=== PATIENT | male | born 1995 | race Caucasian/White ===

== ENCOUNTER 2017-12-23 15:36 | Emergency (ER) | payer OTHER, SELFPAY ==
[2017-12-23 15:56] VITALS: PULSE 64; RESP 14; TEMP 37.3; O2SAT 98; BMI 21.7
[2017-12-23 16:06] VITALS: BP 114/59
--- NOTE | 2017-12-23 16:07 | DI.RAD.S_ITS ---
PROCEDURE: XR CHEST 2V INDICATIONS: inhaled glass from vaping pen. TECHNIQUE: 2 views of the chest were acquired. COMPARISON: None. FINDINGS: Surgical changes and devices: None. Lungs and pleura: No pleural effusions or pneumothorax. Lungs are clear. Mediastinum: Mediastinal contours are normal. Heart size is normal. Bones and chest wall: No suspicious bony abnormalities. Soft tissues appear unremarkable. IMPRESSION: Normal for age, source of current symptoms is not seen. Please note that CT scanning can provide a more accurate detection of foreign body material and may be warranted in this clinical circumstance. Dictated by: Paulo Pereyra M.D. on 12/23/2017 at 16:31 Approved by: Paulo Pereyra M.D. on 12/23/2017 at 16:31
--- NOTE | 2017-12-23 23:27 | ED.SOB ---
HPI - SOB/Dyspnea <[facility] - Last Filed: 12/23/17 23:30> General Chief Complaint: Shortness of Breath/Dyspnea Stated Complaint: INHALED GLASS Time Seen by Provider: 12/23/17 19:32 Source: patient Mode of arrival: ambulatory Limitations: no limitations History of Present Illness Patient states he inhaled a small piece of glass from a vape. He denies any abnormal shortness of breath, but states he feels something in his lung. He states that this may be due to smoking, but he is not sure. He denies any fevers chest pain or shortness of breath. He denies any abdominal pain. He denies any long history. He denies any major medical history. He denies any wheezing or cough. He states that the piece of glass was about 2 mm x 4 mm in a cylindrical smooth shape. Review of Systems <[facility] - Last Filed: 12/23/17 23:30> Review of Systems GENERAL: Denies chills, fatigue, malaise, fever, sweats. HEENT: Denies sinus pain, ear pain, sore throat, difficulty swallowing, dizziness. RESPIRATORY: See HPI CARDIOVASCULAR: Denies chest pain, palpitations, orthopnea, edema, GASTROINTESTINAL: Denies nausea, vomiting, abdominal pain, diarrhea, constipation, melena. : Denies dysuria, frequency, incontinence, hematuria, urinary retention. MUSCULOSKELETAL: denies weakness, joint pain, or bony pain SKIN: Denies rash, skin lesions, or other NEUROLOGIC: Denies weakness, headache, numbness, change in speech, confusion, seizures, incoordination. PSYCHIATRIC: No concerning psychosocial issues. 12 point review of systems is negative except for those stated above Exam <[facility] Last Filed: 12/23/17 23:30> Narrative Exam Narrative: GENERAL: This is a well-nourished, well-developed patient, sitting on stretcher in no apparent distress HEAD: Atraumatic. Normocephalic. No temporal or scalp tenderness. EYES: Pupils equal round and reactive. Extraocular motions intact. No scleral icterus. No injection or drainage. ENT: Nose without bleeding, purulent drainage or septal hematoma. Throat without erythema, tonsillar hypertrophy or exudate. Uvula midline. Airway patent. NECK: Trachea midline. No JVD or lymphadenopathy. Supple, nontender, no meningeal signs. CARDIOVASCULAR: Regular rate and rhythm without murmurs, gallops, or rubs. RESPIRATORY: Clear to auscultation. Breath sounds equal bilaterally. No wheezes, rales, or rhonchi. No cough on exam. No increased respiratory effort. No accessory muscle use. GASTROINTESTINAL: Abdomen soft, non-tender, nondistended. No hepato-splenomegaly, or palpable masses. No guarding. EXTREMITIES: No clubbing, cyanosis, or edema. No joint tenderness, effusion, or edema noted. BACK: Nontender without deformity or crepitance. No flank tenderness. NEURO: AOx3. SKIN: No rash or erythema. Initial Vital Signs Initial Vital Signs: Vital Signs Temperature 99.1 F 12/23/17 15:56 Pulse Rate 64 12/23/17 15:56 Respiratory Rate 14 12/23/17 15:56 Pulse Oximetry 98 12/23/17 15:56 <DO Nimo Tran Last Filed: 12/24/17 05:41> Initial Vital Signs Initial Vital Signs: Vital Signs Temperature 99.1 F 12/23/17 15:56 Pulse Rate 64 12/23/17 15:56 Respiratory Rate 14 12/23/17 15:56 Pulse Oximetry 98 12/23/17 15:56 Course <PARKER Lao - Last Filed: 12/23/17 23:30> Orders Ordered: ED Orders 12/23/17 16:07 Chest [XR chest 2V] Stat Vital Signs - 8 hr 12/23/17 15:56 12/23/17 16:06 Temperature 99.1 F Pulse Rate 64 Respiratory Rate 14 Blood Pressure [Left Arm] 114/59 L Pulse Oximetry 98 <DO Nimo Tran Last Filed: 12/24/17 05:41> Orders Ordered: ED Orders 12/23/17 16:07 Chest [XR chest 2V] Stat Vital Signs - 8 hr 12/23/17 15:56 12/23/17 16:06 Temperature 99.1 F Pulse Rate 64 Respiratory Rate 14 Blood Pressure [Left Arm] 114/59 L Pulse Oximetry 98 MDM - SOB/Dyspnea <PARKER Lao Last Filed: 12/23/17 23:30> Imaging Data Chest x-ray: Radiologist's impression: XRay Report Signed Patient: Natanael Neil MR#: [id number] : 1995 Acct:[id number] Age/Sex: 22 / M Date of Service: 12/23/17 Loc: ED Accession Number: [id number] Procedure: XR chest 2V Ordering Provider: Maya Garcia D.O. PROCEDURE: XR CHEST 2V INDICATIONS: inhaled glass from vaping pen. TECHNIQUE: 2 views of the chest were acquired. COMPARISON: None. FINDINGS: Surgical changes and devices: None. Lungs and pleura: No pleural effusions or pneumothorax. Lungs are clear. Mediastinum: Mediastinal contours are normal. Heart size is normal. Bones and chest wall: No suspicious bony abnormalities. Soft tissues appear unremarkable. IMPRESSION: Normal for age, source of current symptoms is not seen. Please note that CT scanning can provide a more accurate detection of foreign body material and may be warranted in this clinical circumstance. Dictated by: Paulo Pereyra M.D. on 12/23/2017 at 16:31 Approved by: Paulo Pereyra M.D. on 12/23/2017 at 16:31 [facility] Narrative Medical decision making narrative: Patient presents after believing he has inhaled a piece of glass. His chest x-ray is clear. He has no increased respiratory effort. He has no cough. I discussed at length monitoring for any fever, chest pain, shortness of breath or hemoptysis. Patient stated understanding of above. He does plan on following up with the primary care physician. I gave him a list of providers accepting new patients. He had no questions or concerns upon discharge. Discharge Plan Departure Patient Disposition: Home Clinical Impression: Breath shortness Discharge Date/Time: 12/23/17 20:32 Interventions: ED Discharge Assessment Last Done: 12/23/17 20:31 Instructions: DI for Shortness of Breath Activity Restrictions/Additional Instructions: Your x-ray showed no obvious foreign body in your lungs. Come back to the emergency department for any acute concerns including severe shortness of breath, coughing up blood, fever, chest pain. We gave you a list of primary care providers. Please call 1 of them to help find a primary care provider. <Gael Ortiz DO - Last Filed: 12/24/17 05:41> Cosign ED Attending Angelina Attestation: I was immediately available in the department for consultation. Documentation has been reviewed. I agree with assessment and plan.
--- NOTE | 2017-12-23 23:31 | ED_ITS ---
HPI - SOB/Dyspnea <[facility] - Last Filed: 12/23/17 23:30> General Chief Complaint: Shortness of Breath/Dyspnea Stated Complaint: INHALED GLASS Time Seen by Provider: 12/23/17 19:32 Source: patient Mode of arrival: ambulatory Limitations: no limitations History of Present Illness Patient states he inhaled a small piece of glass from a vape. He denies any abnormal shortness of breath, but states he feels something in his lung. He states that this may be due to smoking, but he is not sure. He denies any fevers chest pain or shortness of breath. He denies any abdominal pain. He denies any long history. He denies any major medical history. He denies any wheezing or cough. He states that the piece of glass was about 2 mm x 4 mm in a cylindrical smooth shape. Review of Systems <[facility] - Last Filed: 12/23/17 23:30> Review of Systems GENERAL: Denies chills, fatigue, malaise, fever, sweats. HEENT: Denies sinus pain, ear pain, sore throat, difficulty swallowing, dizziness. RESPIRATORY: See HPI CARDIOVASCULAR: Denies chest pain, palpitations, orthopnea, edema, GASTROINTESTINAL: Denies nausea, vomiting, abdominal pain, diarrhea, constipation, melena. : Denies dysuria, frequency, incontinence, hematuria, urinary retention. MUSCULOSKELETAL: denies weakness, joint pain, or bony pain SKIN: Denies rash, skin lesions, or other NEUROLOGIC: Denies weakness, headache, numbness, change in speech, confusion, seizures, incoordination. PSYCHIATRIC: No concerning psychosocial issues. 12 point review of systems is negative except for those stated above Exam <[facility] Last Filed: 12/23/17 23:30> Narrative Exam Narrative: GENERAL: This is a well-nourished, well-developed patient, sitting on stretcher in no apparent distress HEAD: Atraumatic. Normocephalic. No temporal or scalp tenderness. EYES: Pupils equal round and reactive. Extraocular motions intact. No scleral icterus. No injection or drainage. ENT: Nose without bleeding, purulent drainage or septal hematoma. Throat without erythema, tonsillar hypertrophy or exudate. Uvula midline. Airway patent. NECK: Trachea midline. No JVD or lymphadenopathy. Supple, nontender, no meningeal signs. CARDIOVASCULAR: Regular rate and rhythm without murmurs, gallops, or rubs. RESPIRATORY: Clear to auscultation. Breath sounds equal bilaterally. No wheezes , rales, or rhonchi. No cough on exam. No increased respiratory effort. No accessory muscle use. GASTROINTESTINAL: Abdomen soft, non-tender, nondistended. No hepato-splenomegaly , or palpable masses. No guarding. EXTREMITIES: No clubbing, cyanosis, or edema. No joint tenderness, effusion, or edema noted. BACK: Nontender without deformity or crepitance. No flank tenderness. NEURO: AOx3. SKIN: No rash or erythema. Initial Vital Signs Initial Vital Signs: Vital Signs Temperature 99.1 F 12/23/17 15:56 Pulse Rate 64 12/23/17 15:56 Respiratory Rate 14 12/23/17 15:56 Pulse Oximetry 98 12/23/17 15:56 <DO Nimo Tran Last Filed: 12/24/17 05:41> Initial Vital Signs Initial Vital Signs: Vital Signs Temperature 99.1 F 12/23/17 15:56 Pulse Rate 64 12/23/17 15:56 Respiratory Rate 14 12/23/17 15:56 Pulse Oximetry 98 12/23/17 15:56 Course <PARKER Lao - Last Filed: 12/23/17 23:30> Orders Ordered: ED Orders 12/23/17 16:07 Chest [XR chest 2V] Stat Vital Signs - 8 hr 12/23/17 15:56 12/23/17 16:06 Temperature 99.1 F Pulse Rate 64 Respiratory Rate 14 Blood Pressure [Left Arm] 114/59 L Pulse Oximetry 98 <DO Nimo Tran Last Filed: 12/24/17 05:41> Orders Ordered: ED Orders 12/23/17 16:07 Chest [XR chest 2V] Stat Vital Signs - 8 hr 12/23/17 15:56 12/23/17 16:06 Temperature 99.1 F Pulse Rate 64 Respiratory Rate 14 Blood Pressure [Left Arm] 114/59 L Pulse Oximetry 98 MDM - SOB/Dyspnea <PARKER Lao Last Filed: 12/23/17 23:30> Imaging Data Chest x-ray: Radiologist's impression: XRay Report Signed Patient: Natanael Neil MR#: [id number] : 1995 Acct:[id number] Age/Sex: 22 / M Date of Service: 12/23/17 Loc: ED Accession Number: [id number] Procedure: XR chest 2V Ordering Provider: Maya Garcia D.O. PROCEDURE: XR CHEST 2V INDICATIONS: inhaled glass from vaping pen. TECHNIQUE: 2 views of the chest were acquired. COMPARISON: None. FINDINGS: Surgical changes and devices: None. Lungs and pleura: No pleural effusions or pneumothorax. Lungs are clear. Mediastinum: Mediastinal contours are normal. Heart size is normal. Bones and chest wall: No suspicious bony abnormalities. Soft tissues appear unremarkable. IMPRESSION: Normal for age, source of current symptoms is not seen. Please note that CT scanning can provide a more accurate detection of foreign body material and may be warranted in this clinical circumstance. Dictated by: Paulo Pereyra M.D. on 12/23/2017 at 16:31 Approved by: Paulo Pereyra M.D. on 12/23/2017 at 16:31 [facility] Narrative Medical decision making narrative: Patient presents after believing he has inhaled a piece of glass. His chest x-ray is clear. He has no increased respiratory effort. He has no cough. I discussed at length monitoring for any fever, chest pain, shortness of breath or hemoptysis. Patient stated understanding of above. He does plan on following up with the primary care physician. I gave him a list of providers accepting new patients. He had no questions or concerns upon discharge. Discharge Plan Departure Patient Disposition: Home Clinical Impression: Breath shortness Discharge Date/Time: 12/23/17 20:32 Interventions: ED Discharge Assessment Last Done: 12/23/17 20:31 Instructions: DI for Shortness of Breath Activity Restrictions/Additional Instructions: Your x-ray showed no obvious foreign body in your lungs. Come back to the emergency department for any acute concerns including severe shortness of breath , coughing up blood, fever, chest pain. We gave you a list of primary care providers. Please call 1 of them to help find a primary care provider. <Gael Ortiz DO - Last Filed: 12/24/17 05:41> Cosign ED Attending Angelina Attestation: I was immediately available in the department for consultation. Documentation has been reviewed. I agree with assessment and plan.
== END 2017-12-23 20:32 | disposition home or self-care (01) ==
PROVIDERS: Emergency Provider Nurse Practitioner Family; Family Provider Nurse Practitioner
DX: R06.02 Shortness of breath (principal)
CPT/HCPCS: 71046; 99282; 99283

== ENCOUNTER 2018-01-22 16:42 | Emergency (ER) | payer OTHER, SELFPAY ==
[2018-01-22 16:44] VITALS: BP 143/90; PULSE 70; RESP 18; TEMP 36.8; O2SAT 99; BMI 21.8
--- NOTE | 2018-01-22 17:07 | ED.ABDPAIN ---
HPI - Abdominal Pain <EDWINA Fong - Last Filed: 01/22/18 19:25> General Chief Complaint: Abdominal Pain Stated Complaint: states abdominal pain Time Seen by Provider: 01/22/18 16:51 Source: patient Mode of arrival: ambulatory Limitations: no limitations History of Present Illness HPI narrative: intermittent abd pain, his entire gut hurts when it comes on, feels sharp, started in Aug afte he quit his chew, denies swallowing it, spits it out, no pain currently, and he would also like to be tested for all major std's MD complaint: abdominal pain Onset (ago): month(s) Pain Consistency: intermittent Location: diffuse Severity: moderate Radiation: none Migration to: no migration Relieving factors: nothing Exacerbating factors: nothing Context: other (none) Associated symptoms: denies other symptoms Related Data Allergies Allergy/AdvReac Type Severity Reaction Status Date / Time No Known Drug Allergies Allergy Verified 01/22/18 16:44 Review of Systems <EDWINA Fong - Last Filed: 01/22/18 19:25> Constitutional Reports as per HPI and Reports system reviewed and no additional complaints, except as docu Cardiovascular Denies chest pain and Denies dyspnea Respiratory Denies dyspnea Gastrointestinal Gastrointestinal: Reports as per HPI, Reports abdominal pain, Denies melena, Denies hematochezia, Denies change in bowel habits, Denies constipation, Denies heartburn, Denies diarrhea, Denies nausea and Denies vomiting Genitourinary Denies genital lesions, Denies genital pain, Denies dysuria, Denies flank pain, Denies penile discharge, Denies scrotal swelling, Denies testicular mass and Denies testicular pain Musculoskeletal Denies back pain Exam <EDWINA Fong - Last Filed: 01/22/18 19:25> Initial Vital Signs Initial Vital Signs: Vital Signs Temperature 98.2 F 01/22/18 16:44 Pulse Rate 70 01/22/18 16:44 Respiratory Rate 18 01/22/18 16:44 Blood Pressure 143/90 H 01/22/18 16:44 Pulse Oximetry 99 01/22/18 16:44 Const General: cooperative, healthy appearing, comfortable and well developed Nutritional Appearance: average body habitus Orientation: alert, awake and oriented x3 Resp Effort & Inspection: normal respiratory effort and able to speak in complete sentences Auscultation: clear to auscultation bilaterally Cardio Rate: regular rate Rhythm: regular rhythm Heart Sounds: S1 normal and S2 normal GI Inspection: normal to inspection, non-distended and no obesity Palpation: soft, no hepatosplenomegaly, No hernia and No mass Auscultation: normal bowel sounds General: No CVA tenderness Back/Spine/Pelvis Cervical Spine: cervical ROM normal Thoracic/Lumbar Spine: thoraco-lumbar ROM limited Skin General: no rashes or lesions noted, elasticity normal, turgor normal and warm Neuro General: alert, awake and oriented x3 Cranial Nerves: CN's II-XI intact bilaterally Cognition: normal cognition Speech: speech normal Motor: muscle tone normal throughout Sensory Exam: no sensory deficits noted Psych Appearance: grossly normal and well kempt Mental Status: mental status grossly normal Speech and Movement: speech and movement normal Mood: congruent mood Affect: normal affect Attitude: cooperative Thought Process: normal Thought Content: normal Judgment: judgment good <Maya Garcia DO - Last Filed: 01/23/18 07:21> Initial Vital Signs Initial Vital Signs: Vital Signs Temperature 98.2 F 01/22/18 16:44 Pulse Rate 70 01/22/18 16:44 Respiratory Rate 18 01/22/18 16:44 Blood Pressure 143/90 H 01/22/18 16:44 Pulse Oximetry 99 01/22/18 16:44 Course <EDWIAN Fong - Last Filed: 01/22/18 19:25> Course Narrative: tx options discussed and agreed to send urine for GC screen, but other std testing would not be done here in ER today, pt agreed Orders Ordered: ED Orders 01/22/18 17:25 Urine Chlamydia Gonorrhea PCR Stat Urine Microscopic Stat 01/22/18 17:27 GC Screen Stat 01/22/18 17:30 Amylase Stat Complete Blood Count AUTO DIFF Stat Comprehensive Metabolic Panel Stat Lipase Stat Vital Signs - 8 hr 01/22/18 16:44 Temperature 98.2 F Pulse Rate 70 Respiratory Rate 18 Blood Pressure 143/90 H Pulse Oximetry 99 <Maya Garcia DO - Last Filed: 01/23/18 07:21> Orders Ordered: ED Orders 01/22/18 17:25 Urine Chlamydia Gonorrhea PCR Stat Urine Microscopic Stat 01/22/18 17:27 GC Screen Stat 01/22/18 17:30 Amylase Stat Complete Blood Count AUTO DIFF Stat Comprehensive Metabolic Panel Stat Lipase Stat Vital Signs - 8 hr 01/22/18 16:44 Temperature 98.2 F Pulse Rate 70 Respiratory Rate 18 Blood Pressure 143/90 H Pulse Oximetry 99 MDM - Abdominal Pain <EDWINA Fong - Last Filed: 01/22/18 19:25> Differential Diagnosis Differential diagnosis: Likely abdominal pain, calculus of kidney, pancreatitis, small bowel obstruction and other (std, ulcer, gallstones) Lab Data Result diagrams: 01/22/18 17:30 01/22/18 17:30 Lab Results 01/22/18 01/22/18 01/22/18 Range/Units 17:25 17:25 17:30 WBC 9.2 (4.5-11.0) X10^3/uL RBC 5.11 (4.5-5.9) X10^6/uL Hgb 15.1 (13.5-17.5) g/dL Hct 43.2 (41-53) % MCV 84.5 (80-100) fL MCH 29.5 (26-34) PG MCHC 34.9 (30-36) % RDW 13.3 (11.6-14.8) % Plt Count 244 (150-400) X10^3/uL Neut % (Auto) 58.2 (50-75) % Lymph % (Auto) 31.0 (25-40) % Knott % (Auto) 8.3 (3-14) % Eos % (Auto) 1.6 L (2-4) % Baso % (Auto) 0.9 (0-2) % Neut # (Auto) 5300 (5684-7214) /uL Sodium (137-145) mmol/L Potassium (3.4-5.1) mmol/L Chloride (98-107) mmol/L Carbon Dioxide (22-32) mmol/L BUN (9-20) mg/dL Creatinine (0.66-1.25) mg/dL Estimated GFR (>60) mL/min BUN/Creatinine Ratio (6-22) Glucose (70-100) mg/dL Calcium (8.4-10.2) mg/dL Total Bilirubin (0.2-1.3) mg/dL AST (17-59) IU/L ALT (21-72) IU/L Alkaline Phosphatase (38-126) U/L Total Protein (6.3-8.2) g/dL Albumin (3.5-5.0) g/dL Globulin (1.7-4.1) g/dL Albumin/Globulin Ratio (1.0-2.8) Amylase (30-110) U/L Lipase (23-300) U/L Urine RBC None seen (0-5/HPF) Urine WBC None seen (0-5/HPF) Urine Bacteria None seen (None) Ur Culture Indicated? Cult not indicated Micro UA Comment Microscopic normal Ur Chlamydia DNA (PCR) Not detected N gonorrhoeae DNA (PCR) Not detected 01/22/18 Range/Units 17:30 WBC (4.5-11.0) X10^3/uL RBC (4.5-5.9) X10^6/uL Hgb (13.5-17.5) g/dL Hct (41-53) % MCV (80-100) fL MCH (26-34) PG MCHC (30-36) % RDW (11.6-14.8) % Plt Count (150-400) X10^3/uL Neut % (Auto) (50-75) % Lymph % (Auto) (25-40) % Knott % (Auto) (3-14) % Eos % (Auto) (2-4) % Baso % (Auto) (0-2) % Neut # (Auto) (1184-2810) /uL Sodium 144 (137-145) mmol/L Potassium 3.9 (3.4-5.1) mmol/L Chloride 99 (98-107) mmol/L Carbon Dioxide 33 H (22-32) mmol/L BUN 16 (9-20) mg/dL Creatinine 0.90 (0.66-1.25) mg/dL Estimated GFR > 60.0 (>60) mL/min BUN/Creatinine Ratio 17.8 (6-22) Glucose 81 (70-100) mg/dL Calcium 9.8 (8.4-10.2) mg/dL Total Bilirubin 0.6 (0.2-1.3) mg/dL AST 38 (17-59) IU/L ALT 26 (21-72) IU/L Alkaline Phosphatase 60 (38-126) U/L Total Protein 8.1 (6.3-8.2) g/dL Albumin 4.9 (3.5-5.0) g/dL Globulin 3.2 (1.7-4.1) g/dL Albumin/Globulin Ratio 1.5 (1.0-2.8) Amylase 87 (30-110) U/L Lipase 158 (23-300) U/L Urine RBC (0-5/HPF) Urine WBC (0-5/HPF) Urine Bacteria (None) Ur Culture Indicated? Micro UA Comment Ur Chlamydia DNA (PCR) N gonorrhoeae DNA (PCR) <Maya Garcia, DO - Last Filed: 01/23/18 07:21> Lab Data Lab Results 01/22/18 01/22/18 01/22/18 Range/Units 17:25 17:25 17:30 WBC 9.2 (4.5-11.0) X10^3/uL RBC 5.11 (4.5-5.9) X10^6/uL Hgb 15.1 (13.5-17.5) g/dL Hct 43.2 (41-53) % MCV 84.5 (80-100) fL MCH 29.5 (26-34) PG MCHC 34.9 (30-36) % RDW 13.3 (11.6-14.8) % Plt Count 244 (150-400) X10^3/uL Neut % (Auto) 58.2 (50-75) % Lymph % (Auto) 31.0 (25-40) % Knott % (Auto) 8.3 (3-14) % Eos % (Auto) 1.6 L (2-4) % Baso % (Auto) 0.9 (0-2) % Neut # (Auto) 5300 (7953-6666) /uL Sodium (137-145) mmol/L Potassium (3.4-5.1) mmol/L Chloride (98-107) mmol/L Carbon Dioxide (22-32) mmol/L BUN (9-20) mg/dL Creatinine (0.66-1.25) mg/dL Estimated GFR (>60) mL/min BUN/Creatinine Ratio (6-22) Glucose (70-100) mg/dL Calcium (8.4-10.2) mg/dL Total Bilirubin (0.2-1.3) mg/dL AST (17-59) IU/L ALT (21-72) IU/L Alkaline Phosphatase (38-126) U/L Total Protein (6.3-8.2) g/dL Albumin (3.5-5.0) g/dL Globulin (1.7-4.1) g/dL Albumin/Globulin Ratio (1.0-2.8) Amylase (30-110) U/L Lipase (23-300) U/L Urine RBC None seen (0-5/HPF) Urine WBC None seen (0-5/HPF) Urine Bacteria None seen (None) Ur Culture Indicated? Cult not indicated Micro UA Comment Microscopic normal Ur Chlamydia DNA (PCR) Not detected N gonorrhoeae DNA (PCR) Not detected 01/22/18 Range/Units 17:30 WBC (4.5-11.0) X10^3/uL RBC (4.5-5.9) X10^6/uL Hgb (13.5-17.5) g/dL Hct (41-53) % MCV (80-100) fL MCH (26-34) PG MCHC (30-36) % RDW (11.6-14.8) % Plt Count (150-400) X10^3/uL Neut % (Auto) (50-75) % Lymph % (Auto) (25-40) % Knott % (Auto) (3-14) % Eos % (Auto) (2-4) % Baso % (Auto) (0-2) % Neut # (Auto) (3224-9426) /uL Sodium 144 (137-145) mmol/L Potassium 3.9 (3.4-5.1) mmol/L Chloride 99 (98-107) mmol/L Carbon Dioxide 33 H (22-32) mmol/L BUN 16 (9-20) mg/dL Creatinine 0.90 (0.66-1.25) mg/dL Estimated GFR > 60.0 (>60) mL/min BUN/Creatinine Ratio 17.8 (6-22) Glucose 81 (70-100) mg/dL Calcium 9.8 (8.4-10.2) mg/dL Total Bilirubin 0.6 (0.2-1.3) mg/dL AST 38 (17-59) IU/L ALT 26 (21-72) IU/L Alkaline Phosphatase 60 (38-126) U/L Total Protein 8.1 (6.3-8.2) g/dL Albumin 4.9 (3.5-5.0) g/dL Globulin 3.2 (1.7-4.1) g/dL Albumin/Globulin Ratio 1.5 (1.0-2.8) Amylase 87 (30-110) U/L Lipase 158 (23-300) U/L Urine RBC (0-5/HPF) Urine WBC (0-5/HPF) Urine Bacteria (None) Ur Culture Indicated? Micro UA Comment Ur Chlamydia DNA (PCR) N gonorrhoeae DNA (PCR) Discharge Plan Departure Patient Disposition: Home Clinical Impression: Abdominal pain Discharge Date/Time: 01/22/18 19:20 Interventions: ED Discharge Assessment Last Done: 01/22/18 20:04 Instructions: Acute Abdominal Pain Referrals: Carl Valencia MD [Physician] - SUMIT Meeks [Medical Student] - Vinayak Bravo MD [Physician] - Antonia Cloud [Medical Student] - Prasad Martinez MD [Physician] - Delisa Castro MD [Physician] - <Maya Garcia DO - Last Filed: 01/23/18 07:21> Cosign ED Attending Cosbkature Attestation: I was immediately available in the department for consultation. Documentation has been reviewed. I agree with assessment and plan.
--- NOTE | 2018-01-22 17:19 | ED_ITS ---
HPI - Abdominal Pain <EDWINA Fong - Last Filed: 01/22/18 19:25> General Chief Complaint: Abdominal Pain Stated Complaint: states abdominal pain Time Seen by Provider: 01/22/18 16:51 Source: patient Mode of arrival: ambulatory Limitations: no limitations History of Present Illness HPI narrative: intermittent abd pain, his entire gut hurts when it comes on, feels sharp, started in Aug afte he quit his chew, denies swallowing it, spits it out, no pain currently, and he would also like to be tested for all major std 's MD complaint: abdominal pain Onset (ago): month(s) Pain Consistency: intermittent Location: diffuse Severity: moderate Radiation: none Migration to: no migration Relieving factors: nothing Exacerbating factors: nothing Context: other (none) Associated symptoms: denies other symptoms Related Data Allergies Allergy/AdvReac Type Severity Reaction Status Date / Time No Known Drug Allergies Allergy Verified 01/22/18 16:44 Review of Systems <EDWINA Fong - Last Filed: 01/22/18 19:25> Constitutional Reports as per HPI and Reports system reviewed and no additional complaints, except as docu Cardiovascular Denies chest pain and Denies dyspnea Respiratory Denies dyspnea Gastrointestinal Gastrointestinal: Reports as per HPI, Reports abdominal pain, Denies melena, Denies hematochezia, Denies change in bowel habits, Denies constipation, Denies heartburn, Denies diarrhea, Denies nausea and Denies vomiting Genitourinary Denies genital lesions, Denies genital pain, Denies dysuria, Denies flank pain, Denies penile discharge, Denies scrotal swelling, Denies testicular mass and Denies testicular pain Musculoskeletal Denies back pain Exam <EDWINA Fong - Last Filed: 01/22/18 19:25> Initial Vital Signs Initial Vital Signs: Vital Signs Temperature 98.2 F 01/22/18 16:44 Pulse Rate 70 01/22/18 16:44 Respiratory Rate 18 01/22/18 16:44 Blood Pressure 143/90 H 01/22/18 16:44 Pulse Oximetry 99 01/22/18 16:44 Const General: cooperative, healthy appearing, comfortable and well developed Nutritional Appearance: average body habitus Orientation: alert, awake and oriented x3 Resp Effort & Inspection: normal respiratory effort and able to speak in complete sentences Auscultation: clear to auscultation bilaterally Cardio Rate: regular rate Rhythm: regular rhythm Heart Sounds: S1 normal and S2 normal GI Inspection: normal to inspection, non-distended and no obesity Palpation: soft, no hepatosplenomegaly, No hernia and No mass Auscultation: normal bowel sounds General: No CVA tenderness Back/Spine/Pelvis Cervical Spine: cervical ROM normal Thoracic/Lumbar Spine: thoraco-lumbar ROM limited Skin General: no rashes or lesions noted, elasticity normal, turgor normal and warm Neuro General: alert, awake and oriented x3 Cranial Nerves: CN's II-XI intact bilaterally Cognition: normal cognition Speech: speech normal Motor: muscle tone normal throughout Sensory Exam: no sensory deficits noted Psych Appearance: grossly normal and well kempt Mental Status: mental status grossly normal Speech and Movement: speech and movement normal Mood: congruent mood Affect: normal affect Attitude: cooperative Thought Process: normal Thought Content: normal Judgment: judgment good <Maya Garcia DO - Last Filed: 01/23/18 07:21> Initial Vital Signs Initial Vital Signs: Vital Signs Temperature 98.2 F 01/22/18 16:44 Pulse Rate 70 01/22/18 16:44 Respiratory Rate 18 01/22/18 16:44 Blood Pressure 143/90 H 01/22/18 16:44 Pulse Oximetry 99 01/22/18 16:44 Course <EDWINA Fong - Last Filed: 01/22/18 19:25> Course Narrative: tx options discussed and agreed to send urine for GC screen, but other std testing would not be done here in ER today, pt agreed Orders Ordered: ED Orders 01/22/18 17:25 Urine Chlamydia Gonorrhea PCR Stat Urine Microscopic Stat 01/22/18 17:27 GC Screen Stat 01/22/18 17:30 Amylase Stat Complete Blood Count AUTO DIFF Stat Comprehensive Metabolic Panel Stat Lipase Stat Vital Signs - 8 hr 01/22/18 16:44 Temperature 98.2 F Pulse Rate 70 Respiratory Rate 18 Blood Pressure 143/90 H Pulse Oximetry 99 <Maya Garcia DO - Last Filed: 01/23/18 07:21> Orders Ordered: ED Orders 01/22/18 17:25 Urine Chlamydia Gonorrhea PCR Stat Urine Microscopic Stat 01/22/18 17:27 GC Screen Stat 01/22/18 17:30 Amylase Stat Complete Blood Count AUTO DIFF Stat Comprehensive Metabolic Panel Stat Lipase Stat Vital Signs - 8 hr 01/22/18 16:44 Temperature 98.2 F Pulse Rate 70 Respiratory Rate 18 Blood Pressure 143/90 H Pulse Oximetry 99 MDM - Abdominal Pain <EDWINA Fong - Last Filed: 01/22/18 19:25> Differential Diagnosis Differential diagnosis: Likely abdominal pain, calculus of kidney, pancreatitis , small bowel obstruction and other (std, ulcer, gallstones) Lab Data Result diagrams: 01/22/18 17:30 01/22/18 17:30 Lab Results 01/22/18 01/22/18 01/22/18 Range/Units 17:25 17:25 17:30 WBC 9.2 (4.5-11.0) X10^3/uL RBC 5.11 (4.5-5.9) X10^6/uL Hgb 15.1 (13.5-17.5) g/dL Hct 43.2 (41-53) % MCV 84.5 (80-100) fL MCH 29.5 (26-34) PG MCHC 34.9 (30-36) % RDW 13.3 (11.6-14.8) % Plt Count 244 (150-400) X10^3/uL Neut % (Auto) 58.2 (50-75) % Lymph % (Auto) 31.0 (25-40) % Mcleod % (Auto) 8.3 (3-14) % Eos % (Auto) 1.6 L (2-4) % Baso % (Auto) 0.9 (0-2) % Neut # (Auto) 5300 (2687-7286) /uL Sodium (137-145) mmol/L Potassium (3.4-5.1) mmol/L Chloride (98-107) mmol/L Carbon Dioxide (22-32) mmol/L BUN (9-20) mg/dL Creatinine (0.66-1.25) mg/dL Estimated GFR (>60) mL/min BUN/Creatinine Ratio (6-22) Glucose (70-100) mg/dL Calcium (8.4-10.2) mg/dL Total Bilirubin (0.2-1.3) mg/dL AST (17-59) IU/L ALT (21-72) IU/L Alkaline Phosphatase (38-126) U/L Total Protein (6.3-8.2) g/dL Albumin (3.5-5.0) g/dL Globulin (1.7-4.1) g/dL Albumin/Globulin Ratio (1.0-2.8) Amylase (30-110) U/L Lipase (23-300) U/L Urine RBC None seen (0-5/HPF) Urine WBC None seen (0-5/HPF) Urine Bacteria None seen (None) Ur Culture Indicated? Cult not indicated Micro UA Comment Microscopic normal Ur Chlamydia DNA (PCR) Not detected N gonorrhoeae DNA (PCR) Not detected 01/22/18 Range/Units 17:30 WBC (4.5-11.0) X10^3/uL RBC (4.5-5.9) X10^6/uL Hgb (13.5-17.5) g/dL Hct (41-53) % MCV (80-100) fL MCH (26-34) PG MCHC (30-36) % RDW (11.6-14.8) % Plt Count (150-400) X10^3/uL Neut % (Auto) (50-75) % Lymph % (Auto) (25-40) % Mcleod % (Auto) (3-14) % Eos % (Auto) (2-4) % Baso % (Auto) (0-2) % Neut # (Auto) (5490-0910) /uL Sodium 144 (137-145) mmol/L Potassium 3.9 (3.4-5.1) mmol/L Chloride 99 (98-107) mmol/L Carbon Dioxide 33 H (22-32) mmol/L BUN 16 (9-20) mg/dL Creatinine 0.90 (0.66-1.25) mg/dL Estimated GFR > 60.0 (>60) mL/min BUN/Creatinine Ratio 17.8 (6-22) Glucose 81 (70-100) mg/dL Calcium 9.8 (8.4-10.2) mg/dL Total Bilirubin 0.6 (0.2-1.3) mg/dL AST 38 (17-59) IU/L ALT 26 (21-72) IU/L Alkaline Phosphatase 60 (38-126) U/L Total Protein 8.1 (6.3-8.2) g/dL Albumin 4.9 (3.5-5.0) g/dL Globulin 3.2 (1.7-4.1) g/dL Albumin/Globulin Ratio 1.5 (1.0-2.8) Amylase 87 (30-110) U/L Lipase 158 (23-300) U/L Urine RBC (0-5/HPF) Urine WBC (0-5/HPF) Urine Bacteria (None) Ur Culture Indicated? Micro UA Comment Ur Chlamydia DNA (PCR) N gonorrhoeae DNA (PCR) <Maya Garcia, DO - Last Filed: 01/23/18 07:21> Lab Data Lab Results 01/22/18 01/22/18 01/22/18 Range/Units 17:25 17:25 17:30 WBC 9.2 (4.5-11.0) X10^3/uL RBC 5.11 (4.5-5.9) X10^6/uL Hgb 15.1 (13.5-17.5) g/dL Hct 43.2 (41-53) % MCV 84.5 (80-100) fL MCH 29.5 (26-34) PG MCHC 34.9 (30-36) % RDW 13.3 (11.6-14.8) % Plt Count 244 (150-400) X10^3/uL Neut % (Auto) 58.2 (50-75) % Lymph % (Auto) 31.0 (25-40) % Mcleod % (Auto) 8.3 (3-14) % Eos % (Auto) 1.6 L (2-4) % Baso % (Auto) 0.9 (0-2) % Neut # (Auto) 5300 (0269-1266) /uL Sodium (137-145) mmol/L Potassium (3.4-5.1) mmol/L Chloride (98-107) mmol/L Carbon Dioxide (22-32) mmol/L BUN (9-20) mg/dL Creatinine (0.66-1.25) mg/dL Estimated GFR (>60) mL/min BUN/Creatinine Ratio (6-22) Glucose (70-100) mg/dL Calcium (8.4-10.2) mg/dL Total Bilirubin (0.2-1.3) mg/dL AST (17-59) IU/L ALT (21-72) IU/L Alkaline Phosphatase (38-126) U/L Total Protein (6.3-8.2) g/dL Albumin (3.5-5.0) g/dL Globulin (1.7-4.1) g/dL Albumin/Globulin Ratio (1.0-2.8) Amylase (30-110) U/L Lipase (23-300) U/L Urine RBC None seen (0-5/HPF) Urine WBC None seen (0-5/HPF) Urine Bacteria None seen (None) Ur Culture Indicated? Cult not indicated Micro UA Comment Microscopic normal Ur Chlamydia DNA (PCR) Not detected N gonorrhoeae DNA (PCR) Not detected 01/22/18 Range/Units 17:30 WBC (4.5-11.0) X10^3/uL RBC (4.5-5.9) X10^6/uL Hgb (13.5-17.5) g/dL Hct (41-53) % MCV (80-100) fL MCH (26-34) PG MCHC (30-36) % RDW (11.6-14.8) % Plt Count (150-400) X10^3/uL Neut % (Auto) (50-75) % Lymph % (Auto) (25-40) % Mcleod % (Auto) (3-14) % Eos % (Auto) (2-4) % Baso % (Auto) (0-2) % Neut # (Auto) (4006-1904) /uL Sodium 144 (137-145) mmol/L Potassium 3.9 (3.4-5.1) mmol/L Chloride 99 (98-107) mmol/L Carbon Dioxide 33 H (22-32) mmol/L BUN 16 (9-20) mg/dL Creatinine 0.90 (0.66-1.25) mg/dL Estimated GFR > 60.0 (>60) mL/min BUN/Creatinine Ratio 17.8 (6-22) Glucose 81 (70-100) mg/dL Calcium 9.8 (8.4-10.2) mg/dL Total Bilirubin 0.6 (0.2-1.3) mg/dL AST 38 (17-59) IU/L ALT 26 (21-72) IU/L Alkaline Phosphatase 60 (38-126) U/L Total Protein 8.1 (6.3-8.2) g/dL Albumin 4.9 (3.5-5.0) g/dL Globulin 3.2 (1.7-4.1) g/dL Albumin/Globulin Ratio 1.5 (1.0-2.8) Amylase 87 (30-110) U/L Lipase 158 (23-300) U/L Urine RBC (0-5/HPF) Urine WBC (0-5/HPF) Urine Bacteria (None) Ur Culture Indicated? Micro UA Comment Ur Chlamydia DNA (PCR) N gonorrhoeae DNA (PCR) Discharge Plan Departure Patient Disposition: Home Clinical Impression: Abdominal pain Discharge Date/Time: 01/22/18 19:20 Interventions: ED Discharge Assessment Last Done: 01/22/18 20:04 Instructions: Acute Abdominal Pain Referrals: Carl Valencia MD [Physician] - SUMIT Meeks [Medical Student] - Vinayak Bravo MD [Physician] - Antonia Cloud [Medical Student] - Prasad Martinez MD [Physician] - Delisa Castro MD [Physician] - <Maya Garcia DO - Last Filed: 01/23/18 07:21> Cosign ED Attending Cosbkature Attestation: I was immediately available in the department for consultation. Documentation has been reviewed. I agree with assessment and plan.
[2018-01-22 17:32] LABS: Bacteria Urine None Seen; RBC Urine None Seen (0-5/HPF); WBC Urine None Seen (0-5/HPF)
[2018-01-22 17:39] LABS: Add Manual Diff / Slide Review NO; Basophils Percent Auto 0.9 % (0-2); Eosinophils Percent Auto 1.6 % (2-4); Hematocrit 43.2 % (41-53); Hemoglobin 15.1 g/dL (13.5-17.5); Mean Corpuscular HGB Conc 34.9 % (30-36); Mean Corpuscular Hemoglobin 29.5 PG (26-34); Mean Corpuscular Volume 84.5 fL (80-100); Monocytes Percent Auto 8.3 % (3-14); Neutrophils Absolute Auto 5300 /uL (3000-5900); Neutrophils Percent Auto 58.2 % (50-75); Platelet Count 244 X10^3/uL (150-400); Red Blood Cell Count 5.11 X10^6/uL (4.5-5.9); Red Cell Distribution Width 13.3 % (11.6-14.8); White Blood Cell Count 9.2 X10^3/uL (4.5-11.0)
[2018-01-22 17:50] LABS: Alanine Aminotransferase 26 IU/L (21-72); Albumin 4.9 g/dL (3.5-5.0); Albumin Globulin Ratio 1.5 (1.0-2.8); Alkaline Phosphatase 60 U/L (38-126); Amylase 87 U/L (30-110); Aspartate Aminotransferase 38 IU/L (17-59); BUN Creatinine Ratio 17.8 (6-22); Bilirubin Total 0.6 mg/dL (0.2-1.3); Blood Urea Nitrogen 16 mg/dL (9-20); Calcium 9.8 mg/dL (8.4-10.2); Carbon Dioxide 33 mmol/L (22-32); Chloride 99 mmol/L (98-107); Estimated Glomerular Filt Rate > 60.0 mL/min (>60); Globulin 3.2 g/dL (1.7-4.1); Glucose 81 mg/dL (70-100); HEMOLYSIS < 15 (0-50); Lipase 158 U/L (23-300); Potassium 3.9 mmol/L (3.4-5.1); Sodium 144 mmol/L (137-145); Total Protein 8.1 g/dL (6.3-8.2)
[2018-01-22 18:00] LABS: Culture Indicated Urine Cult Not Indicated; Urine Comments Microscopic Normal
[2018-01-22 19:01] LABS: Urine N gonorrhoeae NOT DETECTED
[2018-01-22 19:04] LABS: Urine Chlamydia NOT DETECTED
== END 2018-01-22 19:20 | disposition home or self-care (01) ==
PROVIDERS: Emergency Provider Nurse Practitioner; Family Provider Nurse Practitioner
DX: R10.9 Unspecified abdominal pain (principal)
CPT/HCPCS: 36591; 80053; 81015; 82150; 83690; 85025; 87491; 87591; 99282; 99283

== ENCOUNTER → 2019-01-02 11:05 | Outpatient (CLI) | payer OTHER, SELFPAY ==
[2019-01-02 12:54] LABS: HIV 1 and 2 Antibody NEGATIVE (NEGATIVE)
== END ==
PROVIDERS: Visit Provider Internal Medicine
DX: Z72.51 High risk heterosexual behavior (principal)
CPT/HCPCS: 36415; 86703

== ENCOUNTER → 2019-03-20 11:46 | Outpatient (CLI) | payer OTHER, SELFPAY ==
--- NOTE | 2019-03-20 | DI.RAD.S_ITS ---
PROCEDURE: XR WRIST LT MIN 3V INDICATIONS: LT WRIST PAIN TECHNIQUE: 4 views of the wrist were acquired. COMPARISON: None. FINDINGS: Bones: No fractures or dislocations. No suspicious bony lesions. Scaphoid view: No fracture Soft tissues: No suspicious soft tissue calcifications. IMPRESSION: Negative exam. If the patient's pain or other symptoms persist, consider further evaluation with MRI Dictated by: Rell Interiano M.D. on 03/20/2019 at 16:07 Approved by: Rell Interiano M.D. on 03/20/2019 at 16:08
--- NOTE | 2019-05-14 15:10 | ONC.MSW ---
Description: Initial Referral Navigation Activity: Reviewed referral for acuity and immediate needs. Forwarded to scheduling to call pt for f/u.
== END ==
PROVIDERS: PCP Internal Medicine; Visit Provider Internal Medicine
DX: M25.532 Pain in left wrist (principal)
CPT/HCPCS: 73110

== ENCOUNTER 2019-05-05 14:13 | Emergency (ER) | payer OTHER, SELFPAY ==
[2019-05-05 14:22] VITALS: BP 138/80; PULSE 67; RESP 16; TEMP 37.2; O2SAT 99
--- NOTE | 2019-05-05 15:55 | ED_ITS ---
HPI - Extremity Problem General Chief complaint: Extremity Problem,Nontraumatic Stated complaint: Numbness in Right Leg Time Seen by Provider: 05/05/19 15:55 Source: patient Mode of arrival: Ambulatory Limitations: no limitations History of Present Illness HPI Narrative: 23-year-old male nonsmoker with noncontributory medical history presents with a chief complaint of and occasionally painful swollen ?vein? running along the medial aspect of his right thigh from the groin to knee. He denies any injury or recent surgical intervention nor any history of clot but does state that he is in his car driving for long periods of time frequently. He does state that the varicose veins run in his family. He denies any chest pain or shortness of breath and is not dizzy nor weak or lightheaded MD Complaint: extremity pain Onset (ago): day(s) Pain Consistency: intermittent Location: right Quality: aching Radiation: none Relieving factors: nothing Exacerbating factors: nothing Associated symptoms: denies other symptoms Context: recent travel Related Data Allergies Allergy/AdvReac Type Severity Reaction Status Date / Time No Known Drug Allergies Allergy Verified 01/22/18 16:44 Review of Systems Constitutional Constitutional: Denies chills, Denies fatigue, Denies fever(s), Denies frequent falls, Denies lethargy and Denies weakness Eyes Eyes: Denies change in vision, Denies eye discharge, Denies irritation and Denies loss of vision ENT Ears, Nose, Mouth, and Throat: Denies change in voice, Denies dizziness, Denies neck pain, Denies sore throat and Denies throat swelling Cardiovascular Cardiovascular: Denies chest pain, Denies irregular heart rhythm, Denies lightheadedness, Denies palpitations, Denies dyspnea, Denies dyspnea on exertion and Denies orthopnea Respiratory Respiratory: Denies cough, Denies dyspnea, Denies dyspnea on exertion and Denies wheezing Gastrointestinal Gastrointestinal: Denies abdominal pain, Denies change in bowel habits, Denies diarrhea, Denies nausea and Denies vomiting Genitourinary Genitourinary: Denies hematuria, Denies flank pain, Denies urinary incontinence and Denies urinary urgency Musculoskeletal Musculoskeletal: Denies back pain, Denies muscle weakness, Denies neck pain, Denies numbness and Denies tingling Integumentary/Breasts Skin/Breast: Denies pruritus, Denies erythema, Denies rash and Denies wounds Neurologic Neurologic: Denies behavioral changes, Denies confusion, Denies dizziness, Denies frequent falls, Denies loss of vision, Denies numbness, Denies tingling and Denies weakness Psychiatric Psychiatric: Denies anxiety, Denies behavioral changes, Denies confusion, Denies depression, Denies homicidal ideation and Denies suicidal ideation Endocrine Endocrine: Denies fatigue, Denies flushing and Denies palpitations Hematologic/Lymphatic Hematologic/Lymphatic: Denies easy bruising Allergic/Immunologic Allergic/Immunologic: Denies urticaria, Denies throat swelling and Denies wheezing Patient History Social History Smoking Status: Current every day smoker Smoking Status: Current every day smoker alcohol intake frequency: 0-2 drinks per day Substance Use Type: former substance user and marijuana Exam Narrative Exam Narrative: GEN: AOx3 and in mild distress EYES: Pupils are equal, round, and reactive to light and accommodation. Extraoccular muscles are intact bilaterally. There is no subconjunctival hemorrhage or exudate. CHEST: Lungs are clear to auscultation bilaterally and free of wheezes, rales, or rhonchi. Heart rate is regular rhythm, there are no murmurs, clicks, rubs, or gallops. There is no chest wall tenderness. ABD: Abdomen is soft and nontender. There is no guarding or rebound. Bowel sounds are normal in all 4 quadrants. There is no mass or organomegaly. EXT: Palpable vessel on medial aspect of right thigh most notable above knee Full painless ROM of all extremities with no loss of sensation or strength. SKIN: Warm, pink, and dry. No erythema or rash Initial Vital Signs Initial Vital Signs: Vital Signs Temperature 98.9 F 05/05/19 14:22 Pulse Rate 67 05/05/19 14:22 Respiratory Rate 16 05/05/19 14:22 Blood Pressure 138/80 05/05/19 14:22 Pulse Oximetry 99 05/05/19 14:22 Course Orders Ordered: ED Orders 05/05/19 15:59 US periph venous low extrem rt Stat Vital Signs Vital signs: Vital Signs - 8 hr 05/05/19 14:22 05/05/19 16:49 Temperature 98.9 F Pulse Rate 67 70 Respiratory Rate 16 15 Blood Pressure 138/80 Blood Pressure [Right Arm] 151/67 H Pulse Oximetry 99 100 MDM - Extremity (Nontraumatic) Imaging Data US - DVT: Radiologist's Impression: [address] [address] Ultrasound Report Signed Patient: Natanael Neil MMR#: [id number] : 1995Acct:[id number] Age/Sex: 23 / MDate of Service: 05/05/19 Loc: ED Accession Number: [id number] Procedure: US periph venous low extrem rt Ordering Provider: Gael Ortiz D.O. PROCEDURE: US PERIP VENOUS LOW EXTREM RT INDICATIONS: RT MEDIAL THIGH PAIN AND SWELLLING TECHNIQUE: Real-time imaging, as well as color and pulse Doppler interrogation, were performed of the lower extremity deep veins from the inguinal ligament to the popliteal fossa. COMPARISON: None. FINDINGS: The common femoral, femoral and popliteal veins are normally compressible, and free of intraluminal thrombus. Color and pulse Doppler demonstrate normal phasic intraluminal flow. There is normal augmentation response to distal compression maneuver. Varicose veins are identified within the medial thigh region at the site of the palpable abnormality. However, no intraluminal thrombus is evident. Incidental note is made of a small Nicholson's cyst. IMPRESSION: 1. No evidence of right lower extremity deep vein thrombosis. 2. Palpable abnormality on the medial right thigh correlates with subcutaneous varicose veins without intraluminal thrombus. Dictated by: Clemente Olsen M.D. on 05/05/2019 at 15:42 Approved by: Clemente Olsen M.D. on 05/05/2019 at 15:44 Discharge Plan Departure Patient Disposition: Home Clinical Impression: Varicose veins of right lower extremity Qualifiers: Varicose vein complication: unspecified Qualified Code(s): I83.91 - Asymptomatic varicose veins of right lower extremity Discharge Date/Time: 05/05/19 17:09 Instructions: DI for Varicose Veins Activity Restrictions/Additional Instructions: *You have been diagnosed with [ varicose veins Right leg ] *What to do: *Follow up with your primary care provider in 2-3 days, call for an appointment. Let them know you were seen in the Emergency Department and that we ask that you be seen in follow up. I've included contact info for the [facility] Resource Line *Return to ER if you should have any new, worsening or concerning symptoms Referrals: [facility] Resources [Outside] Lincoln Mendoza MD [Primary Care Provider] -
--- NOTE | 2019-05-05 15:59 | DI.US.S_ITS ---
PROCEDURE: US PERIPH VENOUS LOW EXTREM RT INDICATIONS: RT MEDIAL THIGH PAIN AND SWELLLING TECHNIQUE: Real-time imaging, as well as color and pulse Doppler interrogation, were performed of the lower extremity deep veins from the inguinal ligament to the popliteal fossa. COMPARISON: None. FINDINGS: The common femoral, femoral and popliteal veins are normally compressible, and free of intraluminal thrombus. Color and pulse Doppler demonstrate normal phasic intraluminal flow. There is normal augmentation response to distal compression maneuver. Varicose veins are identified within the medial thigh region at the site of the palpable abnormality. However, no intraluminal thrombus is evident. Incidental note is made of a small Nicholson's cyst. IMPRESSION: 1. No evidence of right lower extremity deep vein thrombosis. 2. Palpable abnormality on the medial right thigh correlates with subcutaneous varicose veins without intraluminal thrombus. Dictated by: Clemente Olsen M.D. on 05/05/2019 at 15:42 Approved by: Clemente Olsen M.D. on 05/05/2019 at 15:44
[2019-05-05 16:49] VITALS: BP 151/67; PULSE 70; RESP 15; O2SAT 100
== END 2019-05-05 17:09 | disposition home or self-care (01) ==
PROVIDERS: Emergency Provider Emergency Medicine; PCP Internal Medicine
DX: I83.91 Asymptomatic varicose veins of right lower extremity (principal)
CPT/HCPCS: 93971; 99283

== ENCOUNTER → 2019-05-15 12:16 | Outpatient (CLI) | payer OTHER, SELFPAY ==
[2019-05-15 12:55] LABS: Add Manual Diff / Slide Review NO; Basophils Absolute Auto 100 /uL (0-100); Basophils Percent Auto 0.6 % (0-2); Eosinophils Absolute Auto 200 /uL (0-450); Eosinophils Percent Auto 1.7 % (2-4); Hematocrit 47.1 % (41-53); Hemoglobin 16.3 g/dL (13.5-17.5); Lymphocytes Absolute Auto 1800 /uL (1100-4500); Lymphocytes Percent Auto 17.8 % (25-40); Mean Corpuscular HGB Conc 34.6 % (30-36); Mean Corpuscular Hemoglobin 30.2 PG (26-34); Mean Corpuscular Volume 87.5 fL (80-100); Monocytes Absolute Auto 700 /uL (0-900); Monocytes Percent Auto 6.9 % (3-14); Neutrophils Absolute Auto 7200 /uL (1500-7000); Platelet Count 287 X10^3/uL (150-400); Red Blood Cell Count 5.38 X10^6/uL (4.5-5.9); Red Cell Distribution Width 13.4 % (11.6-14.8); White Blood Cell Count 9.9 X10^3/uL (4.5-11.0)
[2019-05-15 12:59] LABS: INR 1.1 (0.9-1.3); Prothrombin Time 12.3 SECONDS (10.1-12.7)
[2019-05-15 13:29] LABS: Erythrocyte Sedimentation Rate 1 MM/HR (0-15)
[2019-05-15 13:41] LABS: Alanine Aminotransferase 29 IU/L (<50); Albumin 5.1 g/dL (3.5-5.0); Alkaline Phosphatase 61 U/L (38-126); Aspartate Aminotransferase 39 IU/L (17-59); BUN Creatinine Ratio 22.5 (6-22); Bilirubin Total 0.7 mg/dL (0.2-1.3); Blood Urea Nitrogen 18 mg/dL (9-20); Calcium 10.2 mg/dL (8.4-10.2); Carbon Dioxide 31 mmol/L (22-32); Chloride 101 mmol/L (98-107); Estimated Glomerular Filt Rate > 60.0 mL/min (>60); Glucose 92 mg/dL (70-100); Potassium 4.6 mmol/L (3.4-5.1); Sodium 141 mmol/L (137-145); Total Protein 8.4 g/dL (6.3-8.2)
[2019-05-15 13:42] LABS: Albumin Globulin Ratio 1.5 (1.0-2.8); C-Reactive Protein Quant < 0.5 mg/dL (<1.0); Globulin 3.3 g/dL (1.7-4.1); HEMOLYSIS < 15 (0-50)
[2019-05-15 13:54] LABS: Free T4, Direct Thyroxine 1.22 ng/dL (0.78-2.19)
[2019-05-15 14:09] LABS: Thyroid Stimulating Hormone 2.84 uIU/mL (0.47-4.68)
== END ==
PROVIDERS: PCP Internal Medicine; Visit Provider Internal Medicine
DX: D68.51 Activated protein C resistance (principal); I83.91 Asymptomatic varicose veins of right lower extremity
CPT/HCPCS: 36415; 80053; 81241; 84439; 84443; 85025; 85610; 85651; 86140

== ENCOUNTER → 2019-05-24 08:04 | Outpatient (CLI) | payer OTHER, SELFPAY ==
--- NOTE | 2019-05-24 08:06 | DI.CT.S_ITS ---
PROCEDURE: CT ABDOMEN PELVIS W CON INDICATIONS: right varicose vein TECHNIQUE: After the administration of oral and intravenous contrast, 5 mm thick sections acquired from the diaphragms to the symphysis. 5 mm thick coronal and sagittal reformats were performed. For radiation dose reduction, the following was used: automated exposure control, adjustment of mA and/or kV according to patient size. COMPARISON: [facility], , PERIP VENOUS LOW EXTREM RT, 05/05/2019, 16:23. FINDINGS: Image quality: Excellent. ABDOMEN: Lung bases: Lung bases are clear. Heart size is normal. Solid organs: Liver is normal in size and enhancement. Gallbladder wall does not appear thickened. Biliary system is non-dilated. Pancreas enhances normally. Spleen is normal in size. Within the lateral aspect of the spleen, there is a rounded low-density lesion that measures 7 mm. It demonstrates an internal density 30 Hounsfield units. No adrenal nodules. Kidneys are normal in size and enhancement, without hydronephrosis. Peritoneum and bowel: Stomach, small bowel, and colon loops are normal in caliber and wall thickness. No free fluid or air. Incidental note is made of a normal-appearing appendix. Nodes and vessels: No retroperitoneal or mesenteric adenopathy. Aorta and inferior vena cava are normal in caliber. Miscellaneous: No ventral hernias. PELVIS: Genitourinary: Bladder wall thickness is normal. Miscellaneous: No inguinal hernias or adenopathy. Bones: No suspicious bony lesions. No vertebral body compression fractures. Mild levoconvex scoliotic curvature is noted. Chronic appearing Schmorl's nodes are seen at the superior endplates of L1 and L2. IMPRESSION: No masses are seen to explain the patient's presenting symptoms of right varicose veins. No venous obstruction is seen. There is a 7 mm splenic lesion, which may be related to a complex cyst or a hemangioma. Normal appendix. Dictated by: Jonathan Pond M.D. on 05/24/2019 at 8:38 Approved by: Jonathan Pond M.D. on 05/24/2019 at 8:41
== END ==
PROVIDERS: PCP Internal Medicine; Visit Provider Internal Medicine
DX: I83.91 Asymptomatic varicose veins of right lower extremity (principal); D73.9 Disease of spleen, unspecified
CPT/HCPCS: 74177; Q9967

== ENCOUNTER → 2019-06-20 16:26 | Outpatient (CLI) | payer OTHER, SELFPAY ==
--- NOTE | 2019-06-20 16:30 | DI.RAD.S_ITS ---
PROCEDURE: XR CERVICAL SPINE 2V OR 3V INDICATIONS: WHIPLASH, LEFT SIDE NECK PAIN TECHNIQUE: 3 view(s) of the cervical spine were acquired. COMPARISON: None. FINDINGS: Bones: No fractures or dislocations to the T1 level. The lateral masses of C1 appear intact on the odontoid view. No suspicious bony lesions. Soft tissues: No prevertebral soft tissue swelling. IMPRESSION: No trauma found. Dictated by: Paulo Pereyra M.D. on 06/20/2019 at 17:03 Approved by: Paulo Pereyra M.D. on 06/20/2019 at 17:03
== END ==
PROVIDERS: PCP Internal Medicine; Referring Provider Chiropractor; Visit Provider Chiropractor
DX: S13.4XXA Sprain of ligaments of cervical spine, initial encounter (principal); V89.2XXA Person injured in unspecified motor-vehicle accident, traffic, initial encounter
CPT/HCPCS: 72040

== ENCOUNTER → 2019-11-08 11:10 | Outpatient (CLI) | payer OTHER, SELFPAY ==
--- NOTE | 2019-11-08 11:11 | DI.MRI.S_ITS ---
PROCEDURE: MR CERVICAL SPINE WO/W CON INDICATIONS: Parasthesia of Upper Arm TECHNIQUE: Noncontrast sagittal T1 spin echo and T2 fast spin echo, sagittal STIR, foraminal oblique sagittal T2 fast spin echo, axial gradient echo or T2 fast spin echo through the cervical spine. After the administration of contrast, axial and sagittal T1 spin echo with fat saturation through the cervical spine. COMPARISON: [facility], CR, XR CERVICAL SPINE 2V OR 3V, 06/20/2019, 16:27. [facility], CT, CT HEAD/BRAIN WO CON, 11/08/2019, 11:07. FINDINGS: Image quality: This examination is limited by involuntary motion artifact. Alignment and curvature: There is straightening of the normal cervical lordosis. Marrow: Marrow is normal in overall signal, without suspicious enhancement. Spinal cord: Visualized spinal cord has normal size and signal. No cerebellar tonsillar herniation. No abnormal intramedullary enhancement. Paraspinous soft tissues: No paravertebral masses or suspicious enhancement. C2-3: Normal appearance. C3-4: The disc height and disk signal are well-preserved. A mild degree of generalized disc osteophyte complex is seen. Mild facet joint hypertrophy is seen. Within the left foraminal region, there is an apparent disc extrusion, with superior migration of the disk material, which is best seen on series 7, image 4. There is moderate to severe left-sided and moderate right-sided neural foraminal narrowing seen. No significant central canal narrowing is seen. C4-5: The disc height and disk signal are well-preserved. A mild degree of generalized disc osteophyte complex is seen. Mild to moderate facet hypertrophy is seen. There is mild to moderate left-sided and no significant right-sided neural foraminal narrowing seen. No significant central canal narrowing is seen. C5-6: The disc height and disk signal are well-preserved. A mild degree of generalized disc osteophyte complex is seen. Mild facet joint hypertrophy is seen. There is mild right-sided and no significant left-sided neural foraminal narrowing seen. Minimal central canal narrowing is seen. C6-7: The disc height and disk signal are well-preserved. Mild to moderate disc osteophyte complex is seen. Mild bilateral facet hypertrophy is seen, right worse than left. There is minimal to mild right-sided and no left-sided neural foraminal narrowing seen. Minimal central canal narrowing is seen. C7-T1: Normal appearance. IMPRESSION: Multiple levels of degenerative change are seen, which are more prominent than would be expected for patient of this age. Within the left foraminal region at C3-C4, there is an apparent disc extrusion seen, with moderate to severe left-sided neural foraminal narrowing. Straightening of the normal cervical lordosis is seen, which is commonly observed in patients with muscular spasm. Dictated by: Jonathan Pond M.D. on 11/08/2019 at 12:08 Approved by: Jonathan Pond M.D. on 11/08/2019 at 12:13
--- NOTE | 2019-11-08 11:15 | DI.CT.S_ITS ---
PROCEDURE: CT HEAD/BRAIN WO CON INDICATIONS: Upper arm parasthesia TECHNIQUE: Noncontrast 4.5 mm thick angled axial sections acquired from the foramen magnum to the vertex, with coronal and sagittal reformats. For radiation dose reduction, the following was used: automated exposure control, adjustment of mA and/or kV according to patient size. COMPARISON: None. FINDINGS: Image quality: Excellent. CSF spaces: Basal cisterns are patent. No extra-axial fluid collections. Ventricles are normal in size and shape. Brain: No midline shift. No intracranial masses or hemorrhage. Cortez-white matter interface is normal. Skull and face: Calvarium and visualized facial bones are intact, without suspicious lesions. Sinuses: Visualized sinuses and mastoids are clear. IMPRESSION: Normal CT of the head. Dictated by: Ge Katz M.D. on 11/08/2019 at 11:37 Approved by: Ge Katz M.D. on 11/08/2019 at 11:39
== END ==
PROVIDERS: PCP Internal Medicine; Referring Provider Internal Medicine; Visit Provider Internal Medicine
DX: R20.2 Paresthesia of skin (principal); M47.812 Spondylosis without myelopathy or radiculopathy, cervical region; M50.21 Other cervical disc displacement, high cervical region; M48.02 Spinal stenosis, cervical region; F32.9 Major depressive disorder, single episode, unspecified; R53.83 Other fatigue; Z78.9 Other specified health status
CPT/HCPCS: 70450; 72156

== ENCOUNTER → 2020-03-03 14:57 | Outpatient (CLI) | payer OTHER, SELFPAY ==
--- NOTE | 2020-03-03 14:59 | DI.RAD.S_ITS ---
PROCEDURE: XR HAND RT MIN 3V INDICATIONS: right hand pain TECHNIQUE: 3 views of the hand(s) acquired. COMPARISON: None. FINDINGS: Bones: No fractures or dislocations. Carpal bones are normally aligned. No suspicious bony lesions. No periosteal reaction. No osseous erosion. Soft tissues: No suspicious soft tissue calcifications. IMPRESSION: No acute osseous abnormality. Dictated by: Robin Sánchez M.D. on 03/03/2020 at 16:29 Approved by: Robin Sánchez M.D. on 03/03/2020 at 16:30
== END ==
PROVIDERS: PCP Internal Medicine; Referring Provider Internal Medicine; Visit Provider Internal Medicine
DX: M79.641 Pain in right hand (principal)
CPT/HCPCS: 73130

== ENCOUNTER → 2020-04-10 08:24 | Outpatient (CLI) | payer OTHER, SELFPAY ==
[2020-04-10 08:29] LABS: Bacteria Urine None Seen; RBC Urine None Seen (0-5/HPF); WBC Urine None Seen (0-5/HPF)
[2020-04-10 10:14] LABS: Appearance Urine UA CLEAR; Bilirubin Urine UA NEGATIVE (NEGATIVE); Color Urine UA YELLOW; Glucose Urine UA NEGATIVE (Negative); Ketones Urine UA NEGATIVE (NEGATIVE); Leukocyte Esterase Urine UA NEGATIVE (NEGATIVE); Nitrite Urine UA NEGATIVE (Negative); Occult Blood Urine UA NEGATIVE (Negative); Protein Urine UA NEGATIVE (Negative); Urobilinogen Urine UA 0.2 E.U./dL (0.2)
[2020-04-10 10:22] LABS: Culture Indicated Urine Cult Not Indicated; Urine Comments Microscopic Normal
[2020-04-10 11:43] LABS: Urine N gonorrhoeae NOT DETECTED
[2020-04-10 11:44] LABS: Urine Chlamydia DETECTED
[2020-04-10 16:07] LABS: HIV 1 & 2 Ab/Ag 4th Gen Combo NEGATIVE (NEGATIVE)
[2020-04-11 01:07] LABS: HBsAg Screen Negative (Negative); Hepatitis A Antibody IgM Negative (Negative); Hepatitis B Core Antibody IgM Negative (Negative); Hepatitis C Antibody <0.1 s/co ratio (0.0-0.9)
[2020-04-11 08:08] LABS: RPR Screen Non Reactive (Non Reactive)
== END ==
PROVIDERS: PCP Family Medicine; Referring Provider Family Medicine; Visit Provider Family Medicine
DX: Z00.01 Encounter for general adult medical examination with abnormal findings (principal); N48.9 Disorder of penis, unspecified
CPT/HCPCS: 36415; 80074; 81001; 86592; 87389; 87491; 87591

== ENCOUNTER → 2020-04-23 08:30 | Outpatient (CLI) | payer OTHER, SELFPAY ==
[2020-04-23 11:12] LABS: Urine N gonorrhoeae NOT DETECTED
[2020-04-23 11:25] LABS: Urine Chlamydia NOT DETECTED
== END ==
PROVIDERS: PCP Family Medicine; Referring Provider Family Medicine; Visit Provider Family Medicine
DX: A74.9 Chlamydial infection, unspecified (principal)
CPT/HCPCS: 87491; 87591

== ENCOUNTER → 2020-09-10 16:31 | Outpatient (CLI) | payer OTHER, SELFPAY ==
[2020-09-10 21:00] LABS: Urine N gonorrhoeae NOT DETECTED
[2020-09-10 21:01] LABS: Urine Chlamydia NOT DETECTED
[2020-09-11 07:04] LABS: RPR Screen Non Reactive (Non Reactive)
[2020-09-11 07:09] LABS: HBsAg Screen Negative (Negative); Hepatitis A Antibody IgM Negative (Negative); Hepatitis B Core Antibody IgM Negative (Negative); Hepatitis C Antibody <0.1 s/co ratio (0.0-0.9)
[2020-09-11 16:43] LABS: HIV 1 & 2 Ab/Ag 4th Gen Combo NEGATIVE (NEGATIVE)
== END ==
PROVIDERS: PCP Family Medicine; Referring Provider Family Medicine; Visit Provider Family Medicine
DX: Z11.3 Encounter for screening for infections with a predominantly sexual mode of transmission (principal)
CPT/HCPCS: 36415; 80074; 86592; 87389; 87491; 87591

== ENCOUNTER → 2021-02-06 10:18 | Outpatient (CLI) | payer OTHER, SELFPAY ==
[2021-02-06 12:39] LABS: Urine N gonorrhoeae NOT DETECTED
[2021-02-06 12:51] LABS: Urine Chlamydia NOT DETECTED
[2021-02-07 06:28] LABS: HBsAg Screen Negative (Negative); Hepatitis A Antibody IgM Negative (Negative); Hepatitis B Core Antibody IgM Negative (Negative); Hepatitis C Antibody <0.1 s/co ratio (0.0-0.9)
[2021-02-07 09:39] LABS: RPR Screen Non Reactive (Non Reactive)
[2021-02-09 18:49] LABS: HIV 1 & 2 Ab/Ag 4th Gen Combo NEGATIVE (NEGATIVE)
== END ==
PROVIDERS: PCP Family Medicine; Referring Provider Family Medicine; Visit Provider Family Medicine
DX: Z20.2 Contact with and (suspected) exposure to infections with a predominantly sexual mode of transmission (principal)
CPT/HCPCS: 36415; 80074; 86592; 87389; 87491; 87591

== ENCOUNTER 2021-05-05 06:24 | Emergency (ER) | payer OTHER, SELFPAY ==
[2021-05-05 06:35] VITALS: BP 141/83; PULSE 65; RESP 16; TEMP 36.5; O2SAT 98; BMI 22.4
--- NOTE | 2021-05-05 06:38 | ED_ITS ---
HPI - General Adult <Vinayak Ramos DO - Last Filed: 05/05/21 18:30> General Chief complaint: Back Pain/Injury Stated complaint: kidney pain x3 days Time Seen by Provider: 05/05/21 06:27 Source: patient Mode of arrival: Ambulatory Limitations: no limitations History of Present Illness HPI narrative: Patient is a 25-year-old male here for evaluation of 3 days of back discomfort in the area of his kidneys come body aches, fevers. He states that he has had a decrease appetite over the past couple days. Has been drinking fluids without difficulty. No rashes. He thinks he has a kidney infection. Related Data Previous Rx's Medication Instructions Recorded bupropion HCl 150 mg tablet,12 hr 150 mg PO BID #90 ea 09/10/20 sustained-release (Wellbutrin SR) meloxicam 7.5 mg tablet (Mobic) 7.5 mg PO DAILY #60 tab 12/25/20 Allergies Allergy/AdvReac Type Severity Reaction Status Date / Time No Known Drug Allergies Allergy Verified 12/25/20 09:10 Review of Systems <DO Nimo Mejia Last Filed: 05/05/21 18:30> Constitutional Constitutional: Reports body ache(s), Reports chills, Reports fatigue and Reports fever(s) Respiratory Respiratory: Reports as per HPI and Reports system reviewed and no additional complaints, except as documented Gastrointestinal Gastrointestinal: Reports as per HPI and Reports system reviewed and no additional complaints, except as documented Genitourinary Genitourinary: Denies hematuria, Denies dysuria and Reports other (Dark colored urine) Integumentary/Breasts Skin/Breast: Reports system reviewed and no additional complaints, except as documented Neurologic Neurologic: Reports system reviewed and no additional complaints, except as documented Endocrine Endocrine: Reports fatigue Hematologic/Lymphatic On Anticoagulants: No Patient History <DO Nimo Mejia Last Filed: 05/05/21 18:30> Medical History Chronic back pain Muscle spasm Nicotine use disorder Post concussion syndrome Routine screening for STI (sexually transmitted infection) Shoulder pain (~2019) Family History Grandfather Factor 5 Leiden mutation, heterozygous Social History Smoking Status: Current some day smoker (Rarely. 1-2 cigs a week. Smokes cannibis more than cigs. ) Smoking Status: Current some day smoker (Rarely. 1-2 cigs a week. Smokes cannibis more than cigs. ) alcohol intake frequency: 0-2 drinks per day Substance Use Type: former substance user and marijuana Exam <Vinayak Ramos DO - Last Filed: 05/05/21 18:30> Initial Vital Signs Initial Vital Signs: Vital Signs Temperature 97.7 F 05/05/21 06:35 Pulse Rate 65 05/05/21 06:35 Respiratory Rate 16 05/05/21 06:35 Blood Pressure 141/83 H 05/05/21 06:35 Pulse Oximetry 98 05/05/21 06:35 HENMT Head: normal to inspection and normocephalic Resp Effort & Inspection: normal respiratory effort Auscultation: clear to auscultation bilaterally Cardio Rate: regular rate Rhythm: regular rhythm GI Inspection: normal to inspection Palpation: soft Skin General: no rashes or lesions noted Neuro General: patient alert, patient awake and moves all extremities Extrem General: normal to inspection and capillary refill normal <Lincoln Casper MD - Last Filed: 05/05/21 08:02> Initial Vital Signs Initial Vital Signs: Vital Signs Temperature 97.7 F 05/05/21 06:35 Pulse Rate 65 05/05/21 06:35 Respiratory Rate 16 05/05/21 06:35 Blood Pressure 141/83 H 05/05/21 06:35 Pulse Oximetry 98 05/05/21 06:35 Course <Vinayak Ramos DO - Last Filed: 05/05/21 18:30> Orders Ordered: Discontinued Medications Sodium Chloride (Normal Saline 0.9%) 1,000 mls @ 1,000 mls/hr IV BOLUS ONE Stop: 05/05/21 07:38 Last Infusion: 05/05/21 08:02 Dose: 0 mls/hr Documented by: Admin: 05/05/21 06:55 Dose: 1,000 mls/hr Documented by: NAHED Ketorolac Tromethamine (Ketorolac 30 Mg/Ml Vial) 30 mg IV NOW ONE Stop: 05/05/21 06:40 Last Admin: 05/05/21 06:55 Dose: 30 mg Documented by: NAHED Vital Signs Vital signs: Vital Signs - 8 hr 05/05/21 06:35 Temperature 97.7 F Pulse Rate 65 Respiratory Rate 16 Blood Pressure 141/83 H Pulse Oximetry 98 <Lincoln Casper MD - Last Filed: 05/05/21 08:02> Course Course Narrative: 7:[address] Ramos, labs are pending. Symptoms likely from COVID infection. Disposition likely discharge home Orders Ordered: Discontinued Medications Sodium Chloride (Normal Saline 0.9%) 1,000 mls @ 1,000 mls/hr IV BOLUS ONE Stop: 05/05/21 07:38 Last Infusion: 05/05/21 08:02 Dose: 0 mls/hr Documented by: Admin: 05/05/21 06:55 Dose: 1,000 mls/hr Documented by: NAHED Ketorolac Tromethamine (Ketorolac 30 Mg/Ml Vial) 30 mg IV NOW ONE Stop: 05/05/21 06:40 Last Admin: 05/05/21 06:55 Dose: 30 mg Documented by: NAHED Reevaluation(s) Reevaluation #1: Spoke with patient results. Feeling much better after visit here. Return precautions reviewed with him. He desires discharge home Time: 07:31 Vital Signs Vital signs: Vital Signs - 8 hr 05/05/21 06:35 Temperature 97.7 F Pulse Rate 65 Respiratory Rate 16 Blood Pressure 141/83 H Pulse Oximetry 98 Medical Decision Making <Vinayak Ramos DO - Last Filed: 05/05/21 18:30> Lab Data Result diagrams: 05/05/21 06:46 05/05/21 06:46 Labs: Lab Results 05/05/21 05/05/21 05/05/21 Range/Units 06:33 06:46 06:46 WBC 4.5 (4.5-11.0) X10^3/uL RBC 4.80 (4.5-5.9) X10^6/uL Hgb 14.1 (13.5-17.5) g/dL Hct 41.3 (41-53) % MCV 86.0 (80-100) fL MCH 29.5 (26-34) PG MCHC 34.3 (30-36) % RDW 13.7 (11.6-14.8) % Plt Count 187 (150-400) X10^3/uL Neut % (Auto) Not Reportable Lymph % (Auto) Not Reportable Sunflower % (Auto) Not Reportable Eos % (Auto) Not Reportable Baso % (Auto) Not Reportable Lymph # (Auto) Not Reportable Sunflower # (Auto) Not Reportable Baso # (Auto) Not Reportable Total Counted 100 Seg Neutrophils % 46.0 (38-70) % Band Neutrophils % 6.0 (3-7) % Lymphocytes % (Manual) 29.0 (25-45) % Atypical Lymphs % 1.0 H ( - 0) % Monocytes % (Manual) 16.0 H (2-11) % Eosinophils % (Manual) 1.0 L (2-4) % Basophils % (Manual) 1.0 (0-1) % Neutrophils # (Manual) 2340 L (9184-4629) /uL RBC Morphology Normal morphology Sodium 134 L (137-145) mmol/L Potassium 4.0 (3.4-5.1) mmol/L Chloride 101 (98-107) mmol/L Carbon Dioxide 28 (22-32) mmol/L BUN 13 (9-20) mg/dL Creatinine 0.93 (0.66-1.25) mg/dL Estimated GFR > 60.0 (>60) mL/min BUN/Creatinine Ratio 14.0 (6-22) Glucose 90 (70-100) mg/dL Calcium 9.6 (8.4-10.2) mg/dL SARS-CoV-2 (PCR) Positive H (Negative) Urine Dip Bedside Urine Glucose Negative Bedside Urine Bilirubin - Negative Bedside Urine Ketone +/- 5 Urine Specific [place] 1.015 Bedside Urine Occult Blood - Negative Bedside Urine pH 6.0 Bedside Urine Protein - Negative Bedside Urine Urobilinogen - Negative Bedside Urine Nitrite - Negative Bedside Urine Leukocytes - Negative Esterase Point of care testing: Urine Dip Bedside Urine Glucose Negative Bedside Urine Bilirubin - Negative Bedside Urine Ketone +/- 5 Urine Specific [place] 1.015 Bedside Urine Occult Blood - Negative Bedside Urine pH 6.0 Bedside Urine Protein - Negative Bedside Urine Urobilinogen - Negative Bedside Urine Nitrite - Negative Bedside Urine Leukocytes - Negative Esterase MDM Narrative Medical decision making narrative: Patient is nontoxic appearing. Afebrile. Labs ordered. Will provide urine sample. Care turned over to Dr. Casper to follow-up and disposition. <Lincoln Casper MD - Last Filed: 05/05/21 08:02> Differential Diagnosis Differential Diagnosis: Viral infection/pyelonephritis/UTI/kidney stone Lab Data Labs: Lab Results 05/05/21 05/05/21 05/05/21 Range/Units 06:33 06:46 06:46 WBC 4.5 (4.5-11.0) X10^3/uL RBC 4.80 (4.5-5.9) X10^6/uL Hgb 14.1 (13.5-17.5) g/dL Hct 41.3 (41-53) % MCV 86.0 (80-100) fL MCH 29.5 (26-34) PG MCHC 34.3 (30-36) % RDW 13.7 (11.6-14.8) % Plt Count 187 (150-400) X10^3/uL Neut % (Auto) Not Reportable Lymph % (Auto) Not Reportable Sunflower % (Auto) Not Reportable Eos % (Auto) Not Reportable Baso % (Auto) Not Reportable Lymph # (Auto) Not Reportable Sunflower # (Auto) Not Reportable Baso # (Auto) Not Reportable Total Counted 100 Seg Neutrophils % 46.0 (38-70) % Band Neutrophils % 6.0 (3-7) % Lymphocytes % (Manual) 29.0 (25-45) % Atypical Lymphs % 1.0 H ( - 0) % Monocytes % (Manual) 16.0 H (2-11) % Eosinophils % (Manual) 1.0 L (2-4) % Basophils % (Manual) 1.0 (0-1) % Neutrophils # (Manual) 2340 L (8247-4282) /uL RBC Morphology Normal morphology Sodium 134 L (137-145) mmol/L Potassium 4.0 (3.4-5.1) mmol/L Chloride 101 (98-107) mmol/L Carbon Dioxide 28 (22-32) mmol/L BUN 13 (9-20) mg/dL Creatinine 0.93 (0.66-1.25) mg/dL Estimated GFR > 60.0 (>60) mL/min BUN/Creatinine Ratio 14.0 (6-22) Glucose 90 (70-100) mg/dL Calcium 9.6 (8.4-10.2) mg/dL SARS-CoV-2 (PCR) Positive H (Negative) Urine Dip Bedside Urine Glucose Negative Bedside Urine Bilirubin - Negative Bedside Urine Ketone +/- 5 Urine Specific [place] 1.015 Bedside Urine Occult Blood - Negative Bedside Urine pH 6.0 Bedside Urine Protein - Negative Bedside Urine Urobilinogen - Negative Bedside Urine Nitrite - Negative Bedside Urine Leukocytes - Negative Esterase Point of care testing: Urine Dip Bedside Urine Glucose Negative Bedside Urine Bilirubin - Negative Bedside Urine Ketone +/- 5 Urine Specific [place] 1.015 Bedside Urine Occult Blood - Negative Bedside Urine pH 6.0 Bedside Urine Protein - Negative Bedside Urine Urobilinogen - Negative Bedside Urine Nitrite - Negative Bedside Urine Leukocytes - Negative Esterase MDM Narrative Medical decision making narrative: Patient is nontoxic appearing. Afebrile. Labs ordered. Will provide urine sample. Care turned over to Dr. Casper to follow-up and disposition. 7:32 a.m.. Labs have returned. Reviewed with patient results. Return precautions reviewed with him. Appropriate for discharge home. Laboratory studies and examined vital signs reassuring. No imaging indicated. Patient desires discharge home. He feels much better. Not toxic. He did receive T oradol and normal saline Discharge Plan Departure Patient Disposition: Home Clinical Impression: COVID-19 virus infection Instructions: DI for COVID-19 (Suspected or Confirmed ) Activity Restrictions/Additional Instructions: Keep well hydrated. May continue ibuprofen or Tylenol for pain aches fevers or chills. Return immediately if any trouble breathing. You must quarantine total of 10 days from 1st day of your symptoms. See family doctor or call provided clinic if he needed family doctor to see in a week for recheck. Call provided primary care referral phone number to establish family doctor. Call [phone] Prescriptions: No Action meloxicam [Mobic] 7.5 mg tablet 7.5 mg PO DAILY Qty: 60 0RF bupropion HCl [Wellbutrin SR] 150 mg tablet sustained-release 12 hr 150 mg PO BID Qty: 90 0RF Referrals: Amilcar Bernal MD [Primary Care Provider] -
[2021-05-05 06:51] LABS: COVID19 -Nasal RAPID POSITIVE (Negative)
[2021-05-05] MEDS: KETOROLAC 30 MG/ML VIAL IV (06:55)
[2021-05-05] MEDS: SODIUM CHLORIDE 0.9% 1,000 ML 1000 ML IV (06:55)
--- NOTE | 2021-05-05 06:56 | PC.NURSE ---
pt reports all over body pain, fatigue, headaches, kidney area pain and dark urine. advised by lab pt covid +. unvaccinated. afebrile
[2021-05-05 07:02] LABS: Blood Urea Nitrogen 13 mg/dL (9-20); Calcium 9.6 mg/dL (8.4-10.2); Carbon Dioxide 28 mmol/L (22-32); Chloride 101 mmol/L (98-107); Estimated Glomerular Filt Rate > 60.0 mL/min (>60); Glucose 90 mg/dL (70-100); HEMOLYSIS < 15 (0-50); Sodium 134 mmol/L (137-145)
[2021-05-05 07:07] LABS: Platelet Count 187 X10^3/uL (150-400)
[2021-05-05 07:09] LABS: Hematocrit 41.3 % (41-53); Hemoglobin 14.1 g/dL (13.5-17.5); Mean Corpuscular HGB Conc 34.3 % (30-36); Mean Corpuscular Hemoglobin 29.5 PG (26-34); Red Cell Distribution Width 13.7 % (11.6-14.8); White Blood Cell Count 4.5 X10^3/uL (4.5-11.0)
[2021-05-05 07:18] LABS: Add Manual Diff / Slide Review YES
[2021-05-05 07:40] LABS: Neutrophils Absolute Manual 2340 /uL (3000-5900); Total Cells Counted 100
[2021-05-05 07:41] LABS: RBC Morphology Normal Morphology
== END 2021-05-05 08:03 | disposition home or self-care (01) ==
PROVIDERS: Emergency Medicine; Emergency Provider Emergency Medicine; PCP Family Medicine
DX: U07.1 COVID-19 (principal); M54.9 Dorsalgia, unspecified
CPT/HCPCS: 36415; 80048; 81003; 85007; 85025; 87635; 96361; 96374; 99284; C9803; J1885

== ENCOUNTER → 2022-01-19 15:00 | Outpatient (CLI) | payer OTHER, SELFPAY ==
[2022-01-21 16:15] LABS: HIV 1 & 2 Ab/Ag 4th Gen Combo NEGATIVE (NEGATIVE)
== END ==
PROVIDERS: PCP Family Medicine; Referring Provider Family Medicine; Visit Provider Family Medicine
DX: Z11.4 Encounter for screening for human immunodeficiency virus [HIV] (principal)
CPT/HCPCS: 36415; 87389

== ENCOUNTER → 2023-02-16 14:55 | Outpatient (CLI) | payer OTHER, SELFPAY ==
[2023-02-16 17:49] LABS: Alanine Aminotransferase 24 IU/L (<50); Albumin 4.7 g/dL (3.5-5.0); Albumin Globulin Ratio 1.6 (1.0-2.8); Alkaline Phosphatase 46 U/L (38-126); Aspartate Aminotransferase 34 IU/L (17-59); Bilirubin Total 0.5 mg/dL (0.2-1.3); Blood Urea Nitrogen 12 mg/dL (9-20); Calcium 9.9 mg/dL (8.4-10.2); Carbon Dioxide 27 mmol/L (22-32); Chloride 101 mmol/L (98-107); Estimated Glomerular Filt Rate > 60 mL/min (>60); Globulin 2.9 g/dL (1.7-4.1); Glucose 103 mg/dL (70-100); HEMOLYSIS < 15 (0-50); Potassium 4.3 mmol/L (3.4-5.1); Sodium 138 mmol/L (137-145); Total Protein 7.6 g/dL (6.3-8.2)
[2023-02-16 18:26] LABS: Add Manual Diff / Slide Review NO; Basophils Absolute Auto 100 /uL (0-100); Eosinophils Absolute Auto 100 /uL (0-450); Eosinophils Percent Auto 1.9 % (2-4); Hematocrit 38.8 % (41-53); Hemoglobin 13.4 g/dL (13.5-17.5); Lymphocytes Absolute Auto 2100 /uL (1100-4500); Mean Corpuscular HGB Conc 34.6 % (30-36); Mean Corpuscular Hemoglobin 29.9 PG (26-34); Mean Corpuscular Volume 86.4 fL (80-100); Monocytes Absolute Auto 700 /uL (0-900); Monocytes Percent Auto 9.2 % (3-14); Neutrophils Absolute Auto 4200 /uL (1500-7000); Neutrophils Percent Auto 58.9 % (50-75); Platelet Count 275 X10^3/uL (150-400); Red Blood Cell Count 4.49 X10^6/uL (4.5-5.9); Red Cell Distribution Width 13.3 % (11.6-14.8); White Blood Cell Count 7.2 X10^3/uL (4.5-11.0)
[2023-02-16 22:33] LABS: Urine N gonorrhoeae NOT DETECTED
[2023-02-16 23:26] LABS: Urine Chlamydia NOT DETECTED
[2023-02-17 15:40] LABS: HIV 1 & 2 Ab/Ag 4th Gen Combo NEGATIVE (NEGATIVE)
[2023-02-19 06:53] LABS: RPR Screen Non Reactive (Non Reactive)
== END ==
PROVIDERS: PCP Family Medicine; Referring Provider Physician Assistant; Visit Provider Physician Assistant
DX: Z11.3 Encounter for screening for infections with a predominantly sexual mode of transmission (principal); R53.83 Other fatigue; R03.0 Elevated blood-pressure reading, without diagnosis of hypertension
CPT/HCPCS: 36415; 80053; 85025; 86592; 87389; 87491; 87591

== ENCOUNTER → 2023-07-18 07:13 | Outpatient (CLI) | payer OTHER, SELFPAY ==
--- NOTE | 2023-07-18 07:14 | DI.CT.S_ITS ---
PROCEDURE: CT HEAD/BRAIN WO CON INDICATIONS: New onset headache, elevated BP, chest pain; Hx of TBI x 2 TECHNIQUE: Noncontrast 4.5 mm thick angled axial sections acquired from the foramen magnum to the vertex, with coronal and sagittal reformats. For radiation dose reduction, the following was used: automated exposure control, adjustment of mA and/or kV according to patient size. COMPARISON: [facility], CT, CT HEAD/BRAIN WO CON, 11/08/2019, 11:07. FINDINGS: Image quality: Diagnostic. CSF spaces: Basal cisterns are patent. No extra-axial fluid collections. Ventricles are normal in size and shape. Brain: No midline shift. No intracranial masses or hemorrhage. Cortez-white matter interface is normal. Skull and face: Calvarium and visualized facial bones are intact, without suspicious lesions. Sinuses: Visualized sinuses and mastoids are clear. IMPRESSION: No acute intracranial pathology. Stable from prior. Dictated by: Jonathan Pond M.D. on 07/18/2023 at 11:40 Approved by: Jonathan Pond M.D. on 07/18/2023 at 11:41
[2023-07-18 08:18] LABS: HEMOLYSIS < 15 (0-50); Iron 87 ug/dL (49-181)
[2023-07-18 08:19] LABS: Add Manual Diff / Slide Review NO; Basophils Absolute Auto 0 /uL (0-100); Basophils Percent Auto 0.6 % (0-2); Eosinophils Absolute Auto 200 /uL (0-450); Eosinophils Percent Auto 2.9 % (2-4); Hematocrit 40.3 % (41-53); Lymphocytes Absolute Auto 2200 /uL (1100-4500); Lymphocytes Percent Auto 33.5 % (25-40); Mean Corpuscular HGB Conc 34.7 % (30-36); Mean Corpuscular Hemoglobin 29.9 PG (26-34); Monocytes Absolute Auto 700 /uL (0-900); Neutrophils Absolute Auto 3500 /uL (1500-7000); Platelet Count 250 X10^3/uL (150-400); Red Blood Cell Count 4.68 X10^6/uL (4.5-5.9); Red Cell Distribution Width 13.6 % (11.6-14.8); White Blood Cell Count 6.6 X10^3/uL (4.5-11.0)
[2023-07-18 08:22] LABS: Alanine Aminotransferase 17 IU/L (<50); Albumin 4.6 g/dL (3.5-5.0); Albumin Globulin Ratio 1.6 (1.0-2.8); Alkaline Phosphatase 46 U/L (38-126); Aspartate Aminotransferase 26 IU/L (17-59); BUN Creatinine Ratio 10.3 (6-22); Bilirubin Total 0.6 mg/dL (0.2-1.3); Blood Urea Nitrogen 10 mg/dL (9-20); Calcium 9.9 mg/dL (8.4-10.2); Carbon Dioxide 29 mmol/L (22-32); Chloride 105 mmol/L (98-107); Cholesterol 189 mg/dL (140-199); Estimated Glomerular Filt Rate > 60 mL/min (>60); Globulin 2.8 g/dL (1.7-4.1); Glucose 93 mg/dL (70-100); HDL Cholesterol 54 mg/dL (40-60); HEMOLYSIS < 15 (0-50); LDL Cholesterol Calculated 115 mg/dL (<100); Potassium 4.6 mmol/L (3.4-5.1); Sodium 141 mmol/L (137-145); Total Protein 7.4 g/dL (6.3-8.2); Triglycerides 98 mg/dL (35-150)
[2023-07-18 08:29] LABS: Percent Iron Saturation 28 % (20-50); Total Iron Binding Capacity 309 ug/dL (261-462); Transferrin 250 mg/dL (206-381)
[2023-07-18 08:52] LABS: TSH w/ Reflex to FT4 3.43 uIU/mL (0.47-4.68)
[2023-07-18 09:11] LABS: Vitamin B12 776 pg/mL (239-931)
== END ==
PROVIDERS: PCP Family Medicine; Referring Provider Physician Assistant; Visit Provider Physician Assistant
DX: R51.9 Headache, unspecified (principal); R03.0 Elevated blood-pressure reading, without diagnosis of hypertension; R07.9 Chest pain, unspecified; R53.83 Other fatigue; Z87.820 Personal history of traumatic brain injury; Z13.220 Encounter for screening for lipoid disorders; Z13.6 Encounter for screening for cardiovascular disorders
CPT/HCPCS: 36415; 70450; 80053; 80061; 82607; 83540; 83550; 84443; 85025

== ENCOUNTER → 2023-08-19 08:32 | Outpatient (CLI) | payer OTHER, SELFPAY ==
--- NOTE | 2023-08-19 08:36 | DI.RAD.S_ITS ---
PROCEDURE: XR CERVICAL SPINE 2V OR 3V INDICATIONS: chronic neck and low back pain TECHNIQUE: 3 view(s) of the cervical spine were acquired. COMPARISON: [facility], , XR CERVICAL SPINE 2V OR 3V, 06/20/2019, 16:27. FINDINGS: Bones: No fractures or dislocations to the T1 level. Mild straightening of the normal cervical lordosis. The lateral masses of C1 appear intact on the odontoid view. No suspicious bony lesions. Soft tissues: No prevertebral soft tissue swelling. IMPRESSION: No significant degenerative changes. Dictated by: Keith Patel M.D. on 08/19/2023 at 9:41 Approved by: Keith Patel M.D. on 08/19/2023 at 9:41
--- NOTE | 2023-08-19 08:36 | DI.RAD.S_ITS ---
PROCEDURE: XR LUMBAR SPINE 2-3V INDICATIONS: chronic neck and low back pain TECHNIQUE: 3 views of the lumbar spine were acquired. COMPARISON: None. FINDINGS: Bones: 5 [id number] vertebrae are present. There is normal bony alignment. No vertebral body compression fractures. No suspicious bony lesions. Soft tissues: Overlying bowel gas pattern is normal. No suspicious soft tissue calcifications. IMPRESSION: No significant degenerative changes. Dictated by: Keith Patel M.D. on 08/19/2023 at 9:47 Approved by: Keith Patel M.D. on 08/19/2023 at 9:50
[2023-08-19 10:36] LABS: Erythrocyte Sedimentation Rate 2 MM/HR (0-15)
[2023-08-19 10:48] LABS: C-Reactive Protein Quant < 0.5 mg/dL (<1.0)
== END ==
PROVIDERS: PCP Family Medicine; Referring Provider Family Medicine; Visit Provider Family Medicine
DX: M54.2 Cervicalgia (principal); Z87.820 Personal history of traumatic brain injury; M54.9 Dorsalgia, unspecified; G89.29 Other chronic pain; M62.838 Other muscle spasm
CPT/HCPCS: 36415; 72040; 72100; 85651; 86038; 86140

== ENCOUNTER → 2023-08-26 16:48 | Outpatient (CLI) | payer OTHER, SELFPAY ==
--- NOTE | 2023-08-26 16:48 | DI.MRI.S_ITS ---
PROCEDURE: MR LUMBAR SPINE WO CON INDICATIONS: chronic low back pain TECHNIQUE: Noncontrast sagittal T1 spin echo and T2 fast echo, sagittal STIR, and T2 fast spin echo through the lumbar spine. In cases with scoliosis, additional coronal T2 fast spin echo may be performed. COMPARISON: [facility], CT, CT ABDOMEN PELVIS W CON, 05/24/2019, 8:54. [facility], MR, MR CERVICAL SPINE WO CON, 08/26/2023, 17:00. [facility], CR, XR LUMBAR SPINE 2-3V, 08/19/2023, 8:46. FINDINGS: Image quality: This examination is limited by involuntary motion artifact. Alignment and Curvature: There is normal bony alignment. Bone Marrow: Marrow is of normal overall signal. No acute vertebral body compression fractures. Spinal Cord: Conus medullaris terminates at the L1 level. Visualized cord demonstrates normal signal and size. Paraspinous Soft Tissues: No paravertebral masses. T12-L1: Normal appearance. L1-L2: Normal appearance. L2-L3: Normal appearance. L3-L4: The disc height and disk signal are well-preserved. Mild generalized disc bulge is seen. There is a superimposed central disc protrusion. Mild bilateral neural foraminal narrowing is seen. No significant central canal narrowing is seen. L4-L5: The disc height and disk signal are well-preserved. Mild generalized disc bulge is seen. There is a superimposed central disc protrusion. Mild facet joint hypertrophy is seen. Mild to moderate bilateral neural foraminal narrowing can be seen. No significant central canal narrowing is seen. L5-S1: No significant abnormality is seen. IMPRESSION: Mild lower lumbar spine degenerative changes are seen, which are worst at the L4-L5 level. Dictated by: Jonathan Pond M.D. on 08/26/2023 at 17:31 Approved by: Jonathan Pond M.D. on 08/26/2023 at 17:34
--- NOTE | 2023-08-26 16:48 | DI.MRI.S_ITS ---
PROCEDURE: MR CERVICAL SPINE WO CON INDICATIONS: chronic neck pain TECHNIQUE: Noncontrast sagittal T1 spin echo and T2 fast spin echo, sagittal STIR, foraminal oblique sagittal T2 fast spin echo, and axial gradient echo or T2 fast spin echo through the cervical spine. COMPARISON: [facility], MR, MR CERVICAL SPINE WO/W CON, 11/08/2019, 11:50. [facility], CR, XR CERVICAL SPINE 2V OR 3V, 08/19/2023, 8:46. [facility], MR, MR LUMBAR SPINE WO CON, 08/26/2023, 17:00. FINDINGS: Image quality: Diagnostic, with note made of motion artifact. Alignment and Curvature: There is straightening of the normal cervical lordosis. No focal AP alignment abnormality is seen. Bone Marrow: Marrow demonstrates normal overall signal. Spinal Cord: Visualized spinal cord has normal size and signal. No cerebellar tonsillar herniation. Paraspinous Soft Tissues: No paravertebral masses. Prevertebral soft tissues are normal in thickness. C2-C3: Normal appearance. C3-C4: The disc height and disk signal are well-preserved. A mild degree of generalized disc osteophyte complex is seen. Mild facet joint hypertrophy is seen. There is moderate left-sided and minimal right-sided neural foraminal narrowing. No central canal narrowing is seen. The previously seen left-sided disc extrusion is no longer seen. C4-C5: The disc height and disk signal are well-preserved. A mild degree of generalized disc osteophyte complex is seen. Mild to moderate facet hypertrophy is seen. There is moderate left-sided and mild right-sided neural foraminal narrowing. No central canal narrowing is seen. When comparison is made with the prior images, these findings are similar. C5-C6: No significant abnormality is seen. Similar to prior. C6-C7: The disc height and disk signal are well-preserved. A mild degree of generalized disc osteophyte complex is seen. Facet there is mild right-sided and no left-sided neural foraminal narrowing. No central canal narrowing is seen. When comparison is made with the prior images, these findings are similar. C7-T1: No significant abnormality is seen. IMPRESSION: In 2019, there was previously seen a disc extrusion involving the left neural foramen at C3-C4, which has now resolved. Multiple levels of underlying premature cervical spine degenerative change can be seen elsewhere, which otherwise appear similar. Straightening of the normal cervical lordosis is seen, which is commonly observed in patients with muscular spasm. Dictated by: Jonathan Pond M.D. on 08/26/2023 at 17:26 Approved by: Jonathan Pond M.D. on 08/26/2023 at 17:30
== END ==
PROVIDERS: PCP Family Medicine; Referring Provider Family Medicine; Visit Provider Family Medicine
DX: M51.36 Other intervertebral disc degeneration, lumbar region (principal); Z87.820 Personal history of traumatic brain injury; M54.9 Dorsalgia, unspecified; G89.29 Other chronic pain; M62.838 Other muscle spasm; M50.30 Other cervical disc degeneration, unspecified cervical region
CPT/HCPCS: 72141; 72148

== ENCOUNTER → 2024-02-28 15:50 | Outpatient (CLI) | payer BC, SELFPAY ==
[2024-02-28 17:35] LABS: Add Manual Diff / Slide Review NO; Basophils Absolute Auto 100 /uL (0-100); Basophils Percent Auto 0.9 % (0-2); Eosinophils Absolute Auto 100 /uL (0-450); Eosinophils Percent Auto 0.9 % (2-4); Hematocrit 43.8 % (41-53); Hemoglobin 15.3 g/dL (13.5-17.5); Lymphocytes Absolute Auto 1900 /uL (1100-4500); Mean Corpuscular HGB Conc 34.8 % (30-36); Mean Corpuscular Hemoglobin 30.2 PG (26-34); Mean Corpuscular Volume 86.6 fL (80-100); Monocytes Absolute Auto 800 /uL (0-900); Monocytes Percent Auto 8.6 % (3-14); Neutrophils Absolute Auto 5900 /uL (1500-7000); Neutrophils Percent Auto 67.6 % (50-75); Platelet Count 292 X10^3/uL (150-400); Red Blood Cell Count 5.06 X10^6/uL (4.5-5.9); White Blood Cell Count 8.8 X10^3/uL (4.5-11.0)
[2024-02-28 18:17] LABS: Alanine Aminotransferase 24 IU/L (<50); Albumin 4.8 g/dL (3.5-5.0); Albumin Globulin Ratio 1.5 (1.0-2.8); Alkaline Phosphatase 48 U/L (38-126); Aspartate Aminotransferase 37 IU/L (17-59); BUN Creatinine Ratio 14.9 (6-22); Bilirubin Total 0.7 mg/dL (0.2-1.3); Blood Urea Nitrogen 14 mg/dL (9-20); Calcium 10.3 mg/dL (8.4-10.2); Carbon Dioxide 28 mmol/L (22-32); Chloride 102 mmol/L (98-107); Estimated Glomerular Filt Rate > 60 mL/min (>60); Globulin 3.1 g/dL (1.7-4.1); Glucose 114 mg/dL (70-100); HEMOLYSIS < 15 (0-50); Potassium 3.7 mmol/L (3.4-5.1); Sodium 139 mmol/L (137-145); Total Protein 7.9 g/dL (6.3-8.2)
[2024-02-28 18:36] LABS: Creatinine Urine Random 139.48 mg/dL
[2024-02-28 18:38] LABS: Microalbumin Urine Random 0.6 mg/dL (0-1.6)
[2024-02-28 18:48] LABS: TSH w/ Reflex to FT4 2.91 uIU/mL (0.47-4.68)
== END ==
LOC: LAB 15:51
PROVIDERS: PCP Family Medicine; Referring Provider Family Medicine; Visit Provider Family Medicine
DX: M54.9 Dorsalgia, unspecified (principal); G89.29 Other chronic pain; I10 Essential (primary) hypertension
CPT/HCPCS: 36415; 80053; 82043; 82570; 84443; 85025

== ENCOUNTER 2024-04-10 20:00 | Emergency (ER) | payer BC, SELFPAY ==
[2024-04-10 20:10] VITALS: BP 159/100; PULSE 106; RESP 18; TEMP 37.1; O2SAT 99; BMI 23.7
[2024-04-10] MEDS: TET,DIPH,PERTUSS(ACELL),VAC/PF 0.5 ML SYRINGE IM (21:06)
--- NOTE | 2024-04-10 21:18 | ED_ITS ---
HPI - Wound/Laceration General Chief Complaint: Wound/Laceration Stated Complaint: cut lt wrist Time Seen by Provider: 04/10/24 20:41 Source: patient Mode of arrival: Ambulatory History of Present Illness HPI narrative: 28-year-old male presents with accidental left wrist laceration. He works as an journeyman apprentice electricians and accidentally cut his wrist on an electrical panel. Uncertain when last tetanus shot was administered. Related Data Previous Rx's Medication Instructions Recorded cyclobenzaprine 5 mg tablet 5 mg PO TID PRN muscle spasm #30 08/19/23 tabs amlodipine 5 mg tablet 5 mg PO DAILY #90 tabs 02/28/24 trazodone 50 mg tablet See Rx Instructions PO BEDTIME PRN 03/05/24 insomnia #30 tabs alprazolam 0.25 mg tablet 0.25 mg PO BID PRN anxiety #14 tabs 04/09/24 Allergies Allergy/AdvReac Type Severity Reaction Status Date / Time No Known Drug Allergies Allergy Verified 03/15/24 11:46 Patient History Medical History Marijuana smoker COVID-19 virus infection Muscle spasm Post concussion syndrome Nicotine use disorder Routine screening for STI (sexually transmitted infection) Chronic back pain Shoulder pain (~2019) Family History Grandfather Factor 5 Leiden mutation, heterozygous Social History Smoking Status: Never smoker Smoking Status: Never smoker alcohol intake frequency: 0-2 drinks per day Exam Initial Vital Signs Initial Vital Signs: Vital Signs Temperature 98.8 F 04/10/24 20:10 Pulse Rate 106 H 04/10/24 20:10 Respiratory Rate 18 04/10/24 20:10 Blood Pressure 159/100 H 04/10/24 20:10 Pulse Oximetry 99 04/10/24 20:10 Oxygen Delivery Method Room Air 04/10/24 20:10 Const: Awake, alert, no acute distress, nontoxic appearing MSK: full range of motion, pulses equal Skin: 2cm Z - shaped laceration L wrist Neuro: AO x3, CN II-XII grossly intact, moves all extremities Procedures Laceration Repair Laceration 1: Site: upper extremity Side (If applicable): left Size (cm): 2 Description: irregular and clean Depth: simple, single layer Local Anesthetic: lidocaine 1% Amount of anesthesia used (mL): 3 Pre-repair: wound explored, irrigated extensively and deep structures intact Skin layer closed with: nylon Skin layer suture size: 4-0 Number of sutures: 6 Technique: simple, interrupted Course Orders Ordered: Discontinued Medications Diphtheria/Tetanus/Acell Pertussis (Tet,Diph,Pertuss(Acell),Vac/Pf 0.5 Ml Syringe) 0.5 ml IM .ONCE ONE Stop: 04/10/24 21:00 Last Admin: 04/10/24 21:06 Dose: 0.5 ml Documented By: REYES Vital Signs Vital signs: Vital Signs - 8 hr 04/10/24 20:10 04/10/24 21:27 Temperature 98.8 F Pulse Rate 106 H 92 H Respiratory Rate 18 23 Blood Pressure 159/100 H 164/92 H Pulse Oximetry 99 97 Oxygen Delivery Method Room Air Room Air MDM - Wound/Laceration MDM Narrative Medical decision making narrative: Patient with accidental wrist laceration. Deep structures intact, no evidence of tendon injury. Tetanus updated. Wound repaired per procedure notes. Care instructions given at bedside. Discharge Plan Departure Patient Disposition: Home Clinical Impression: Laceration of left wrist Instructions: DI for Laceration Repair Activity Restrictions/Additional Instructions: Keep your sutures clean and dry. They should be removed in about 7-10 days. If you notice redness, swelling, or drainage please return for repeat evaluation. Prescriptions: No Action trazodone 50 mg tablet See Rx Instructions PO BEDTIME PRN (Reason: insomnia) Qty: 30 1RF Rx Instructions: take 1-2 tabs orally at bedtime PRN insomnia alprazolam 0.25 mg tablet 0.25 mg PO BID PRN (Reason: anxiety) Qty: 14 0RF amlodipine 5 mg tablet 5 mg PO DAILY Qty: 90 0RF cyclobenzaprine 5 mg tablet 5 mg PO TID PRN (Reason: muscle spasm) Qty: 30 3RF Referrals: Amilcar Bernal MD [Primary Care Provider] - Stand Alone Forms: Patient Portal/API/Survey
[2024-04-10 21:27] VITALS: BP 164/92; PULSE 92; RESP 23; O2SAT 97
== END 2024-04-10 21:30 | disposition home or self-care (01) ==
PROVIDERS: Emergency Provider Emergency Medicine; PCP Family Medicine
DX: S61.512A Laceration without foreign body of left wrist, initial encounter (principal); W26.9XXA Contact with unspecified sharp object(s), initial encounter; Z23 Encounter for immunization
CPT/HCPCS: 12001; 90471; 99283; 90715

== ENCOUNTER → 2025-01-11 11:07 | Outpatient (CLI) | payer BC, SELFPAY ==
[2025-01-11 12:42] LABS: Alanine Aminotransferase 22 IU/L (<50); Albumin 5.1 g/dL (3.5-5.0); Albumin Globulin Ratio 1.8 (1.0-2.8); Alkaline Phosphatase 47 U/L (38-126); Blood Urea Nitrogen 16 mg/dL (9-20); Calcium 10.0 mg/dL (8.4-10.2); Carbon Dioxide 26 mmol/L (22-32); Chloride 101 mmol/L (98-107); Estimated Glomerular Filt Rate > 60 mL/min (>60); Globulin 2.8 g/dL (1.7-4.1); Glucose 79 mg/dL (70-99); HEMOLYSIS < 15 (0-50); Potassium 4.2 mmol/L (3.4-5.1); Sodium 139 mmol/L (137-145); Total Protein 7.9 g/dL (6.3-8.2)
[2025-01-11 12:44] LABS: Hemoglobin A1C% w Est Avg Glu 5.1 % (4.0-6.0)
[2025-01-11 13:10] LABS: Urine N gonorrhoeae NOT DETECTED
[2025-01-11 13:22] LABS: Urine Chlamydia NOT DETECTED
[2025-01-13 10:12] LABS: Calcium 10.0 mg/dL (8.7-10.2); Parathyroid Hormone, Intact 31 pg/mL (15-65)
== END ==
PROVIDERS: PCP Family Medicine; Referring Provider Family Medicine; Visit Provider Family Medicine
DX: I10 Essential (primary) hypertension (principal); R73.9 Hyperglycemia, unspecified; E83.52 Hypercalcemia; Z20.2 Contact with and (suspected) exposure to infections with a predominantly sexual mode of transmission
CPT/HCPCS: 36415; 80053; 82310; 83036; 83970; 87491; 87591

== ENCOUNTER → 2025-01-12 11:25 | Outpatient (CLI) | payer BC, SELFPAY | LOC: LAB 11:25 | PROVIDERS: PCP Family Medicine; Visit Provider Physician Assistant Medical | DX: Z72.51 High risk heterosexual behavior (principal) | CPT/HCPCS: 87491; 87591 ==